=== PATIENT | male | born 1945 | race African-American/Black ===

== ENCOUNTER 2022-10-02 11:12 | Outpatient (REF) | payer OTHER, SELFPAY ==
[2022-10-02 11:24] LABS: MANUAL DIFF FLAG NO
[2022-10-02 11:36] LABS: Basophils Percent Auto 0.5 % (0-2); Eosinophils Absolute Auto 0.3 X10*3/uL (0.0-0.4); Eosinophils Percent Auto 2.9 % (0-4); Hematocrit 43.2 % (42.0-52.0); Hemoglobin 14.4 g/dl (14.0-18.0); Imm Gran Abs Auto 0.05 X10*3/uL (0.00-0.03); Imm Gran Pct Auto 0.6 % (0.0-0.4); Lymphocytes Absolute Auto 3.3 X10*3/uL (1.2-4.9); Lymphocytes Percent Auto 38.6 % (20-40); Mean Corpuscular HGB Conc 33.3 g/dl (31.0-36.0); Mean Corpuscular Hemoglobin 30.9 pg (27.0-33.0); Mean Corpuscular Volume 92.7 fL (80.0-98.0); Mean Platelet Volume 9.2 fL (9.4-12.4); Monocytes Absolute Auto 0.9 X10*3/uL (0.1-1.2); Monocytes Percent Auto 10.4 % (2-11); Platelet Count 293 X10*3/uL (160-400); Red Blood Count 4.66 X10*6/uL (4.60-5.80); Red Cell Distribution Width 14.5 % (11.0-16.0); White Blood Count 8.6 X10*3/uL (4.8-10.8)
[2022-10-02 12:15] LABS: Alanine Aminotransferase 35 U/L (0-40); Albumin Level 4.5 g/dL (3.5-5.0); Alkaline Phosphatase 69 U/L (39-117); Anion Gap 16 (12-20); Aspartate Amino Transferase 30 U/L (5-37); Bilirubin Total 0.7 mg/dL (0.0-1.0); Blood Urea Nitrogen 20 mg/dL (9-16); Calcium 9.6 mg/dL (8.4-10.2); Carbon Dioxide 26 mmol/L (22-29); Chloride 104 mmol/L (96-108); Cholesterol 165 mg/dL; Estimated Glomerular Filt Rate 45; Glucose Random 106 mg/dL (60-115); Potassium 3.9 mmol/L (3.3-5.1); Sodium 142 mmol/L (135-145); Total Protein 7.9 g/dL (6.5-8.0); Uric Acid 6.9 mg/dL (3.4-7.0)
[2022-10-02 12:38] LABS: TSH reflex Free T4 1.02 uIU/mL (0.32-4.0)
== END 2022-10-02 11:13 | disposition home or self-care (01) ==
LOC: HO.LAB 11:12
PROVIDERS: PCP Internal Medicine; Visit Provider Internal Medicine
DX: K21.9 Gastro-esophageal reflux disease without esophagitis (principal); E78.00 Pure hypercholesterolemia, unspecified; M10.9 Gout, unspecified; E55.9 Vitamin D deficiency, unspecified; I10 Essential (primary) hypertension
CPT/HCPCS: 36415; 80053; 82306; 82465; 84443; 84550; 85025

== ENCOUNTER 2022-10-06 10:00 | Outpatient (RCR) | payer OTHER, SELFPAY ==
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
--- NOTE | 2022-10-06 13:16 | MHC.PT.DC ---
[facility] [place] Office [place] Office [place] Office [address] Flor Garrett [address] [phone] F: [phone] F: [phone] F: [phone] F: [phone] Physical Therapy Discharge Report Diagnosis: STRAIN OF MUSCLE FASCIA AND TENDON AT NECK LEVEL Date of Surgery: NA Date of Evaluation: 09/05/22 Date of Discharge: 10/06/22 Treatments to Date: 7 Cancellations to Date: No Shows to Date: Discharge Status: Improved Function Independent with HEP Recommend MD Follow-up Discharge Summary: PER ASSESSMENT LAST SESSION BY JULIO C BEASLEY PT, DPT Fatigues quickly with ER therex but independent with performance for HEP. Has met goals of PT and is agreeable to DC on this date. Electronically signed by: GERMAINE LUNA PT Please sign and return to therapist. Thank you for your referral.
== END 2022-10-06 13:16 | disposition home or self-care (01) ==
LOC: HO.PT 10:00
PROVIDERS: PCP Internal Medicine; Visit Provider Internal Medicine
DX: S16.1XXS Strain of muscle, fascia and tendon at neck level, sequela (principal); V89.2XXS Person injured in unspecified motor-vehicle accident, traffic, sequela
CPT/HCPCS: 97110; 97140; 97161; 97535

== ENCOUNTER 2023-02-01 05:58 | Outpatient (REF) | payer OTHER, SELFPAY ==
--- NOTE | ~2023-02-01 | XR_ITS ---
EXAMINATION: XR KNEE, LEFT CLINICAL INFORMATION: Pain. COMPARISON: None TECHNIQUE: AP, lateral, tunnel, and sunrise views of the left knee. FINDINGS: Bony alignment and mineralization are normal. There is moderately severe asymmetric narrowing of the medial joint space compartment, with peripheral osteophyte formation. The lateral and patellofemoral joint space compartments are well-maintained. Small patellar enthesophytes are noted. No fracture, dislocation or joint effusion is seen. There is no foreign body. There are atherosclerotic calcifications. XR/XR knee LT 4V IMPRESSION: 1. No fracture, dislocation or left knee joint effusion is seen. 2. There is moderately severe osteoarthritic change of the medial joint space compartment of the left knee.
--- NOTE | ~2023-02-01 | XR_ITS ---
EXAMINATION: XR HIP, LEFT CLINICAL INFORMATION: Pain. COMPARISON: None TECHNIQUE: AP and frog-leg lateral views of the left hip. FINDINGS: Bony alignment and mineralization are normal. The left acetabular joint space is well-maintained. A tiny subchondral cyst is noted of the lateral margin of the left acetabular roof. No fracture or dislocation is seen. The left femoral head appears smooth. There is no foreign body. XR/XR hip LT min 2V IMPRESSION: Very mild osteoarthritic change is seen of the left hip. No fracture or dislocation is seen.
== END 2023-02-01 05:59 | disposition home or self-care (01) ==
LOC: HO.XRAY 05:58
PROVIDERS: PCP Internal Medicine; Visit Provider Internal Medicine
DX: M25.562 Pain in left knee (principal); M25.552 Pain in left hip
CPT/HCPCS: 73502; 73564

== ENCOUNTER 2023-07-16 13:09 | Outpatient (AMB) | payer MEDICARE, SELFPAY ==
[2023-07-16 13:13] VITALS: BP 118/86; PULSE 61; O2SAT 98; BMI 27.4
--- NOTE | 2023-07-16 13:13 | MHC.PC.OV ---
Vital Signs 07/16/23 13:13 Height 5 ft 6 in Weight 169 lb 8 oz BMI 27.4 BP 118/86 Blood Pressure Location Lt brachial Position Sitting Pulse 61 Pulse Source Pulse Oximeter Pulse Oximetry (%) 98 Oxygen Delivery Method Room Air Intake Visit Reasons: Follow up, RS no show appt from [facility] Program Manager Required: No Accompanied by: Self / Same As Patient Allergies No Known Drug Allergies Allergy (Unknown, Verified 07/16/23 13:56) Unknown Medication List - Last Reconciled 07/16/23 by Chuck Riojas MD allopurinol 200 mg (2 x 100 mg) PO DAILY 90 days aspirin 81 mg PO DAILY atorvastatin 40 mg PO DAILY 90 days cholecalciferol (vitamin D3) 50 mcg PO DAILY 90 days hydrochlorothiazide 25 mg PO DAILY losartan 25 mg PO DAILY omeprazole 20 mg PO QAM 90 days tizanidine 4 mg PO Q8H PRN 10 days Tobacco use date assessed: 07/16/23 Fall risk assessment: No Falls in past year Last assessed Fall Risk: 07/16/23 Dental Screening Dental Screen Date: 07/16/23 Did you have a dental visit in the last 12 months?: No Did you have a dental problem in the last 6 months where you did not have access to dental care?: No Was dental information given to patient?: No HPI Follow up, RS no show appt from [facility] HPI Details Patient comes in today for his follow up visit - has not been back since December 2022 States that he continues to experience increased pain in both knees as well as on and off pain in his left hip Notes that his left hip hurts a lot and he sometimes would feel a hard ball in his left hip area when the pain flares up Would like to know how his x-rays done a few months ago came out Adds that he needs all of his Rx refilled and sent over to his mail order pharmacy - [facility] Was told that they have been faxing a form over for us to full out over the past couple of weeks but we have not yet responded to them States that he needs this processed JACOB as he will be running out of all of his Rx soon States that he feels okay otherwise He denies any headaches or dizziness Denies any chest pains, no SOB No nausea/vomiting, no abdominal pain No change in bowel habits noted Has not had any follow up labs done recently [facility] Medical History Benign essential hypertension Chronic kidney disease (CKD), stage III (moderate) GERD (gastroesophageal reflux disease) Gout Overweight (BMI 25.0-29.9) Pure hypercholesterolemia Vitamin D deficiency Surgical History History of cataract surgery Family History Mother No problems noted. Father No problems noted. Social History Housing: Apartment Alcohol intake: current Alcohol intake frequency: holidays/special occasions only Patient Tobacco Use Status: Former Tobacco user e-Cigarette/Vaping Use: Never Used Second Hand Smoke Exposure: Yes Current occupational status: retired Cognitive needs: No Hearing needs: No Vision needs: No Questionnaire PHQ-9 Over the last 2 weeks, how often have you been bothered by any of the following problems? 1. Little interest or pleasure in doing things: not at all 2. Feeling down, depressed, or hopeless: not at all 3. Trouble falling or staying asleep, or sleeping too much: not at all 4. Feeling tired or having little energy: not at all 5. Poor appetite or overeating: not at all 6. Feeling bad about yourself - or that you are a failure or have let yourself or your family down: not at all 7. Trouble concentrating on things, such as reading the newspaper or watching television: not at all 8. Moving or speaking so slowly that other people could have noticed. Or the opposite - being so fidgety or restless that you have been moving around a lot more than usual: not at all 9. Thoughts that you would be better off or of hurting yourself in some way: not at all Total score: 0 Depression Screening Interpretation: Negative [id number] - PHQ-9 Billing: Yes Source: Developed by Drs. Jeff Mena, Roselia Miller, Lalo Sexton and colleagues, with an educational alia from [employer]. Thrive Questionnaire Date Thrive assessed: 07/16/23 I am a: Patient What is your living situation today?: I have a steady place to live Within the past 12 months, did the food you bought not last and you didn't have the money to get more?: Never true Within the past 12 months, did you worry whether your food would run out before you got money to buy more?: Never true Do you have trouble paying for medicines?: No Do you have trouble getting transportation to medical appointments?: No Do you have trouble paying your heating and electricity bill?: No Do you have trouble taking care of your child, family member or friend?: No Do you have trouble with day-to-day activities such as bathing, preparing meals, shopping, managing finances, etc.?: No Are you currently unemployed and looking for a job?: No Are you interested in more education?: No Please select the resources that you would like help with: None Currently or been in a relationship where the following occur: no concerns reported AUDIT C Alcohol Use Questionnaire (AUDIT-C) 1. How often do you have a drink containing alcohol?: Monthly or less 2. How many drinks containing alcohol do you have on a typical day when you are drinking?: 1 or 2 3. How often do you have six or more drinks on one occasion?: Never Total Score: 1 Score Reviewed/Action Taken: Yes SID-7 AMB Questionnaire SID-7 Date SID - 7 assessed: 07/16/23 Feeling nervous, anxious, or on edge: 0 = Not at all Not being able to stop or control worryin = Not at all Worrying too much about different things: 0 = Not at all Trouble relaxin = Not at all Being so restless that it is hard to sit still: 0 = Not at all Becoming easily annoyed or irritable: 0 = Not at all Feeling afraid as if something awful might happen: 0 = Not at all Total SID-7 score (0-4 normal; 5-9 mild; 10-14 moderate; 15-21 severe): 0 Source: Developed by Drs. Jeff Mena, Roselia Miller, Lalo Sexton and colleagues, with an educational alia from [employer]. SID-7 Assessment Billing SID-7 Assessment Tool: SID-7 Assessment 75402 Review of Systems Const Denies fatigue, Denies fever(s) and Denies headache(s) ENT Denies dysphagia, Denies dizziness, Denies otalgia, Denies headache(s), Denies odynophagia and Denies sore throat Card Denies chest pain, Denies palpitations and Denies dyspnea Resp Denies cough and Denies dyspnea GI Denies abdominal pain, Denies constipation, Denies dysphagia, Denies heartburn, Denies diarrhea, Denies nausea, Denies odynophagia and Denies vomiting Denies dysuria and Denies nocturia Musc Reports arthralgias (left hip and both knees - see HPI) and Denies joint swelling Skin/Breast Denies rash Neuro Denies dizziness and Denies headache(s) Endo Denies fatigue and Denies palpitations Physical exam (Primary Care) Vital Signs: Last Vital Signs Pulse 61 07/16/23 13:13 BP 118/86 07/16/23 13:13 Pulse Ox 98 07/16/23 13:13 Oxygen Delivery Method Room Air 07/16/23 13:13 BMI result Body Mass Index 27.4 Tobacco/Smoking Status: Tobacco use Status Tobacco use date assessed 07/16/23 07/16/23 13:19 Patient Tobacco Use Status Former Tobacco user 07/16/23 13:19 e-Cigarette/Vaping Use Never Used 07/16/23 13:19 PHQ-9: PHQ-9 Score PHQ-9: Total score 0 07/16/23 17:10 Depression Screening Interpretation: Negative Thrive Assessment: Date of Thrive Assessment Date Thrive assessed 07/16/23 07/16/23 13:19 Currently or been in a relationship where the following occur: no concerns reported Const General: no acute distress and alert HENMT Ears: TM's normal bilaterally and EAC's normal Throat: Yes posterior oropharynx normal and Yes tonsils normal (no TP congestion) Neck Neck: Yes no lymphadenopathy and Yes supple Resp Auscultation: clear to auscultation bilaterally, no rales and no wheezes Cardio Rate: regular rate Rhythm: regular rhythm Heart sounds: no murmurs GI Palpation (GI): Soft to palpation and nontender Auscultation: normal bowel sounds Skin Rashes: no rashes Extrem General: Yes no clubbing, cyanosis or edema Right lower extremity: knee Details: tenderness; no swelling Left lower extremity: hip/thigh Details: tenderness Location: of the hip Location: posterolaterally; no swelling and knee Details: tenderness; no swelling Assessment and Plan Assessment & Plan (1) Benign essential hypertension: Code(s): I10 - Essential (primary) hypertension Plan: Reinforced low sodium diet - goal is systolic BP of at least 130 to 140 mm or less, especially now in light of his stage 3 CKD Continue HCTZ 25 mg Q AM and Losartan 25 mg QD Recalls feeling very dizzy all the time while on Amlodipine in the past - symptoms have improved with discontinuation of the medication (2) Chronic kidney disease (CKD), stage III (moderate): Code(s): N18.30 - Chronic kidney disease, stage 3 unspecified Qualifiers: Chronic kidney disease stage 3 subtype: stage 3a (GFR 45-59) Qualified Code(s): N18.31 - Chronic kidney disease, stage 3a Plan: Cautioned again that he currently is in CKD stage 3 based on his lab results and that he should make every effort to keep his BP controlled as best as possible to slow down the decline in his renal function Will continue to monitor his renal function closely/regularly - will have him go and get his previously ordered follow up labs done JACOB (3) Pure hypercholesterolemia: Code(s): E78.00 - Pure hypercholesterolemia, unspecified Plan: Reinforced low cholesterol diet Continue Atorvastatin 40 mg QD Will recheck labs and FASTING lipids JACOB for follow up (4) Vitamin D deficiency: Code(s): E55.9 - Vitamin D deficiency, unspecified Plan: Continue Vitamin D3 2000 units QD (5) Gout: Code(s): M10.9 - Gout, unspecified Qualifiers: Chronicity: unspecified Gout etiology: unspecified cause Gout site: unspecified site Qualified Code(s): M10.9 - Gout, unspecified Plan: Reinforced low purine diet Serum uric acid level was normal when last checked in September 2022; will recheck JACOB Continue Allopurinol 100 mg 2 tablets QD (6) Bilateral primary osteoarthritis of knee: Code(s): M17.0 - Bilateral primary osteoarthritis of knee Plan: X-rays of the left knee done back in January 2023 revealed (+) moderately severe OA changes of the medial joint space compartment of the left knee Advised that this is also most likely the reason for his increasing right knee pain lately Will refer him to orthopedics for further evaluation and management (7) Primary osteoarthritis of left hip: Code(s): M16.12 - Unilateral primary osteoarthritis, left hip Plan: Left hip x-rays done in January 2023 revealed (+) very mild OA changes in the left hip As his left hip seems to be bothering him a lot, will also refer him to orthopedics for further evaluation and management (8) GERD (gastroesophageal reflux disease): Code(s): K21.9 - Gastro-esophageal reflux disease without esophagitis Qualifiers: Esophagitis presence: without esophagitis Qualified Code(s): K21.9 - Gastro-esophageal reflux disease without esophagitis Plan: Dietary restrictions reinforced Continue Omeprazole 20 mg QD (9) Overweight (BMI 25.0-29.9): Code(s): E66.3 - Overweight Plan: Reinforced diet/exercise as tolerated/lose weight Plan Follow up in 4 months Orders: Orders Comprehensive Reform. Panel Fast Today E78.00 - Pure hypercholesterolemia, unspecified Lipid Panel Today E78.00 - Pure hypercholesterolemia, unspecified TSH reflex Free T4 Today E78.00 - Pure hypercholesterolemia, unspecified Vitamin D 25-OH Total Today E55.9 - Vitamin D deficiency, unspecified Complete Blood Count Auto Diff Today I10 - Essential (primary) hypertension UA CC w/rflx Micro + Cult Today R30.0 - Dysuria Uric Acid Today M10.9 - Gout, unspecified Referrals Orthopedics Referral M16.12 - Unilateral primary osteoarthritis, left hip, M17.0 - Bilateral primary osteoarthritis of knee Medications: Refilled losartan 25 mg PO DAILY 90 tabs 1RF allopurinol 200 mg (2 x 100 mg) PO DAILY 90 days 180 tabs 1RF aspirin 81 mg PO DAILY 90 tabs 1RF atorvastatin 40 mg PO DAILY 90 days 90 tabs 1RF cholecalciferol (vitamin D3) 50 mcg PO DAILY 90 days 90 tabs 3RF R79.89 - Other specified abnormal findings of blood chemistry hydrochlorothiazide 25 mg PO DAILY 90 tabs 0RF omeprazole 20 mg PO QAM 90 days 90 caps 1RF tizanidine 4 mg PO Q8H PRN 30 tabs 0RF muscle spasms 10 days allopurinol 200 mg (2 x 100 mg) PO DAILY 180 tabs 1RF 90 days atorvastatin 40 mg PO DAILY 90 tabs 1RF 90 days cholecalciferol (vitamin D3) 50 mcg PO DAILY 90 tabs 3RF 90 days R79.89 - Other specified abnormal findings of blood chemistry hydrochlorothiazide 25 mg PO DAILY 90 tabs 0RF omeprazole 20 mg PO QAM 90 caps 1RF 90 days Coding Level of Care Code Est Pt Level 4 (04010) Diagnoses Benign essential hypertension I10 Chronic kidney disease (CKD), stage III (moderate) N18.31 Chronic kidney disease stage 3 subtype: stage 3a (GFR 45-59) Pure hypercholesterolemia E78.00 Vitamin D deficiency E55.9 Gout M10.9 Chronicity: unspecified Gout etiology: unspecified cause Gout site: unspecified site Bilateral primary osteoarthritis of knee M17.0 Primary osteoarthritis of left hip M16.12 GERD (gastroesophageal reflux disease) K21.9 Esophagitis presence: without esophagitis Overweight (BMI 25.0-29.9) E66.3 Additional Codes SID-7 Assessment Billing - SID-7 Assessment Tool: SID-7 Assessment 94457 ([id number])
== END 2023-07-16 13:58 | disposition home or self-care (01) ==
PROVIDERS: PCP Internal Medicine; Visit Provider Internal Medicine
DX: I12.9 Hypertensive chronic kidney disease with stage 1 through stage 4 chronic kidney disease, or unspecified chronic kidney disease (principal); N18.31 Chronic kidney disease, stage 3a; E55.9 Vitamin D deficiency, unspecified; K21.9 Gastro-esophageal reflux disease without esophagitis; E78.00 Pure hypercholesterolemia, unspecified; M10.9 Gout, unspecified; M17.0 Bilateral primary osteoarthritis of knee; M16.12 Unilateral primary osteoarthritis, left hip; E66.3 Overweight
CPT/HCPCS: 99214

== ENCOUNTER 2023-07-27 09:49 | Outpatient (REF) | payer MEDICARE, SELFPAY ==
--- NOTE | ~2023-07-27 | XR_ITS ---
EXAMINATION: XR PELVIS CLINICAL INFORMATION: Hip pain COMPARISON: Left hip 02/01/2023 TECHNIQUE: AP view of the pelvis. FINDINGS: There is normal symmetry of bilateral hip joints. No bony erosive changes no fracture or lytic process. The SI joints are symmetrical. The mild degenerative disc changes L4-L5 and L5-S1 disc levels are noted. Soft tissues are normal. XR/XR pelvis 1-2V IMPRESSION: Mild degenerative disc changes L4-L5 and L5-S1 disc level. No visible acute fracture or dislocation seen.
== END 2023-07-27 09:50 | disposition home or self-care (01) ==
LOC: HO.HOSX 09:49
PROVIDERS: Visit Provider Orthopaedic Surgery
DX: M47.816 Spondylosis without myelopathy or radiculopathy, lumbar region (principal)
CPT/HCPCS: 72170

== ENCOUNTER 2023-07-27 10:04 | Outpatient (AMB) | payer MEDICARE, SELFPAY ==
--- NOTE | 2023-07-27 10:04 | A.OFFVIS_ITS ---
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 Patient reports that has been ongoing for a few years now. His pain is located on the lasteral aspect of the hip. His pain is intermittant and tends to flair with cold weather. 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 He complains of pain primarily on the lateral aspect of his hip, intermittently. He says his pain seems to be present every other day with no exacerbating factors. He says he sometimes feels a lump where he feels his pain and if he massages it for some time his pain can resolve. He says his pain has been present for ~2 years now and he denies any prior treatment. He says he can walk well when his hip is not causing him pain. He denies any numbness, tingling, or burning pain. He has lumbar spine OA [facility] Medical History Benign essential hypertension Chronic kidney disease (CKD), stage III (moderate) GERD (gastroesophageal reflux disease) Gout Overweight (BMI 25.0-29.9) Pure hypercholesterolemia Vitamin D deficiency Surgical History History of cataract surgery Family History Mother No problems noted. Father No problems noted. Social History Housing: Apartment Alcohol intake: current Alcohol intake frequency: holidays/special occasions only Patient Tobacco Use Status: Former Tobacco user e-Cigarette/Vaping Use: Never Used Second Hand Smoke Exposure: Yes Current occupational status: retired Cognitive needs: No Hearing needs: No Vision needs: No Review of Systems Const All systems reviewed & are unremarkable except as noted in HPI and below Physical Exam Const General: no acute distress, alert and awake Orientation/consciousness: patient oriented x3 HEENT Head: Yes normocephalic and Yes atraumatic Eyes EOM: EOMs intact bilaterally Resp Effort & Inspection: normal respiratory effort and able to speak in complete sentences Cardio Jugular venous distension: no JVD Skin General skin exam: turgor normal Rashes: no rashes Neuro General: patient oriented x3 Extrem Other: Left Hip: Full ROM No pain TTP over SI and lumbosacral region Psych Appearance: grossly normal Affect: normal affect Attitude: cooperative Results Reviewed Results Reviewed: I personally reviewed relevant radiographs. Mild osteoarthritic change is seen of the left hip There is moderately severe osteoarthritic change of the medial joint space compartment of the left knee. Assessment & Plan Assessment & Plan (1) Osteoarthritis of lumbar spine: Code(s): M47.816 - Spondylosis without myelopathy or radiculopathy, lumbar region Plan: This is a 77 year old man with lumbar spine OA. He has intermittent pain with daily activity, localized primarily to the lateral aspect of his hip. He denies any prior treatment. I discussed his diagnosis and treatment options. I referred him to Dr. Bertrand in Pain Management to discuss treatment options. He can follow up prn. Plan Scribed for Thien Noble MD by Lucius Reynoso, medical record specialist, on 07/27/23 at 10:45 AM, EST. Orders: Orders XR pelvis 1-2V 07/27/23 M25.559 - Pain in unspecified hip Referrals Pain Management Referral M47.816 - Spondylosis without myelopathy or radiculopathy, lumbar region Coding Level of Care Code New Pt Level 4 (97842) Diagnoses Osteoarthritis of lumbar spine M47.816
== END 2023-07-27 10:43 | disposition home or self-care (01) ==
PROVIDERS: PCP Internal Medicine; Visit Provider Orthopaedic Surgery
DX: M47.816 Spondylosis without myelopathy or radiculopathy, lumbar region (principal)
CPT/HCPCS: 99204

== ENCOUNTER 2023-09-10 14:26 | Outpatient (AMB) | payer MEDICARE, SELFPAY ==
--- NOTE | 2023-09-10 14:31 | A.OFFVIS_ITS ---
Intake Vital Signs 09/10/23 14:33 Height 5 ft 6 in Weight 165 lb BMI 26.6 BP 157/71 H Blood Pressure Location Lt brachial Position Sitting Respiration 14 Pulse 46 L Pulse Source Pulse Oximeter Pulse Oximetry (%) 97 Oxygen Delivery Method Room Air Intake Visit Reasons: Spondylosis w/o myelopathy or radiculopathy Allergies No Known Drug Allergies Allergy (Unknown, Verified 09/10/23 14:34) Unknown Medication List - Last Reconciled 09/10/23 by Lata Antoine LPN allopurinol 200 mg (2 x 100 mg) PO DAILY 90 days aspirin 81 mg PO DAILY atorvastatin 40 mg PO DAILY 90 days cholecalciferol (vitamin D3) 50 mcg PO DAILY 90 days hydrochlorothiazide 25 mg PO DAILY losartan 25 mg PO DAILY omeprazole 20 mg PO QAM tizanidine 4 mg PO Q8H PRN 10 days HPI Spondylosis w/o myelopathy or radiculopathy HPI0 Details 77-year-old male who presents today to t he office for an evaluation of spondylosis without myelopathy or radiculopathy. He has a history of lumbar spine OA. Pain is rated as 6 to 8/10 in intensity. The patient reports pain in the lateral aspect of his hip that started about two years ago. He describes his pain as intermittent in nature. He states that his pain seems to be present every other day with no exacerbating factors. He says he can walk well when his hip is not causing him pain. He denies any numbness, tingling, or burning pain. He denies any prior treatment. [facility] Medical History Benign essential hypertension Chronic kidney disease (CKD), stage III (moderate) GERD (gastroesophageal reflux disease) Gout Overweight (BMI 25.0-29.9) Pure hypercholesterolemia Vitamin D deficiency Surgical History History of cataract surgery Family History Mother No problems noted. Father No problems noted. Social History Housing: Apartment Alcohol intake: current Alcohol intake frequency: holidays/special occasions only Patient Tobacco Use Status: Former Tobacco user e-Cigarette/Vaping Use: Never Used Second Hand Smoke Exposure: Yes Current occupational status: retired Cognitive needs: No Hearing needs: No Vision needs: No Review of Systems Const All systems reviewed & are unremarkable except as noted in HPI and below Physical Exam Vital Signs: Last Vital Signs Pulse 46 L 09/10/23 14:33 Resp 14 09/10/23 14:33 BP 157/71 H 09/10/23 14:33 Pulse Ox 97 09/10/23 14:33 Oxygen Delivery Method Room Air 09/10/23 14:33 BMI result Body Mass Index 26.6 General: Appears afebrile. Alert and oriented. Mood and affect appropriate. Follows and participates in conversation appropriately. Respiratory effort is unlabored. Able to transition from sit to stand unassisted. Ambulates with bilaterally normal heel strike and toe off. Tenderness on palpation overlying the right sacroiliac joint region. There is a reproduction of pain on lumbar extension and facet loading. There is also tenderness overlying the right greater trochanteric area. Results Reviewed Results Reviewed: 07/27/23: XR PELVIS FINDINGS: There is normal symmetry of bilateral hip joints. No bony erosive changes no fracture or lytic process. The SI joints are symmetrical. The mild degenerative disc changes L4-L5 and L5-S1 disc levels are noted. Soft tissues are normal. IMPRESSION: Mild degenerative disc changes L4-L5 and L5-S1 disc level. No visible acute fracture or dislocation seen. Assessment & Plan Assessment & Plan (1) Osteoarthritis of lumbar spine: Code(s): M47.816 - Spondylosis without myelopathy or radiculopathy, lumbar region Qualifiers: Spinal osteoarthritis complication: without myelopathy or radiculopathy Qualified Code(s): M47.816 - Spondylosis without myelopathy or radiculopathy, lumbar region (2) Sacroiliac joint dysfunction: Code(s): M53.3 - Sacrococcygeal disorders, not elsewhere classified Plan Discussed continuing physical therapy vs. diagnostic SIJ/facet joint injections as a possible treatment option. Will schedule him for a diagnostic L3-L4-L5 medial branch block, bilaterally followed by diagnostic sacroiliac joint injections bilaterally two weeks apart. Based on the results of the diagnostic injections, we will decide on further interventions to target it towards either the lumbar facets or the sacroiliac joint. Discussed the risks and benefits of the procedure with the patient in detail. All questions were answered. The patient is on board with the plan. Informed the patient that insurance approval is required. We will file a PA for approval and keep him updated. Justification for interventional therapy: ? Patient with average pain > 6/10 ? Patient has exhausted conservative therapy Scribed for Dr. Bertrand by Edgard Mcdonald, medical program specialist, on 09/10/2023. I, Dr. Bertrand, have personally reviewed and agree with the information entered by the scribe. Coding Level of Care Code New Pt Level 4 (41720) Diagnoses Spondylosis of lumbar region without myelopathy or radiculopathy M47.816 Spinal osteoarthritis complication: without myelopathy or radiculopathy Sacroiliac joint dysfunction M53.3
[2023-09-10 14:33] VITALS: BP 157/71; PULSE 46; RESP 14; O2SAT 97; BMI 26.6
== END 2023-09-10 14:53 | disposition home or self-care (01) ==
PROVIDERS: PCP Internal Medicine; Visit Provider Internal Medicine
DX: M47.816 Spondylosis without myelopathy or radiculopathy, lumbar region (principal); M53.3 Sacrococcygeal disorders, not elsewhere classified
CPT/HCPCS: 99204

== ENCOUNTER → 2023-09-10 14:26 | Outpatient (BNVA) | payer MEDICARE, SELFPAY | PROVIDERS: PCP Internal Medicine; Visit Provider Internal Medicine ==

== ENCOUNTER 2023-10-31 06:07 | Outpatient (REF) | payer MEDICARE, SELFPAY | END 2023-10-31 06:08 | disposition home or self-care (01) | LOC: CF 06:07 | PROVIDERS: Visit Provider Internal Medicine | DX: Z13.89 Encounter for screening for other disorder (principal) ==

== ENCOUNTER 2023-11-21 05:33 | Outpatient (REF) | payer MEDICARE, SELFPAY ==
--- NOTE | ~2023-11-21 | FL_ITS ---
EXAMINATION: XR FLUOROSCOPY WITH IMAGES CLINICAL INFORMATION: Sacrococcygeal disorders, not elsewhere classified. COMPARISON: None available. TECHNIQUE: Fluoroscopy Supervised By: Dr. Thor Bertrand. Fluoroscopy Time: 0.2 minutes. Cumulative Dose: 4.55 mGy. DAP: 0.306 Gycm2. Images: 4. FINDINGS: Images demonstrate needle placement over the bilateral sacroiliac joints FL/FL guidance in treatment room IMPRESSION: Fluoroscopy guidance for bilateral sacroiliac joint injection.
== END 2023-11-21 05:34 | disposition home or self-care (01) ==
LOC: CF 05:33
PROVIDERS: Visit Provider Internal Medicine
DX: M53.3 Sacrococcygeal disorders, not elsewhere classified (principal)
CPT/HCPCS: 27096; J2795; Q9967

== ENCOUNTER 2023-11-21 07:35 | Outpatient (AMB) | payer MEDICARE, SELFPAY ==
[2023-11-21 07:41] VITALS: BP 150/66; PULSE 51; RESP 12; O2SAT 100
--- NOTE | 2023-11-21 07:41 | MHC.OFFVIS ---
Intake Vital Signs 11/21/23 07:41 11/21/23 08:14 BP 150/66 H 150/70 H Blood Pressure Location Lt brachial Lt brachial Position Sitting Sitting Respiration 12 12 Pulse 51 63 Pulse Source Pulse Oximeter Pulse Oximeter Pulse Oximetry (%) 100 100 Oxygen Delivery Method Room Air Room Air Intake Visit Reasons: Bijan Dx SIJ inj Allergies No Known Drug Allergies Allergy (Unknown, Verified 11/21/23 07:42) Unknown HPI Bijan Dx SIJ inj HPI Details Patient presents for scheduled procedure. Denies any recent cough, cold, infection, fever or other significant changes in medical history since last office visit. [facility] Medical History Benign essential hypertension Chronic kidney disease (CKD), stage III (moderate) GERD (gastroesophageal reflux disease) Gout Overweight (BMI 25.0-29.9) Pure hypercholesterolemia Vitamin D deficiency Surgical History History of cataract surgery Family History Mother No problems noted. Father No problems noted. Social History Housing: Apartment Alcohol intake: current Alcohol intake frequency: holidays/special occasions only Patient Tobacco Use Status: Former Tobacco user e-Cigarette/Vaping Use: Never Used Second Hand Smoke Exposure: Yes Current occupational status: retired Cognitive needs: No Hearing needs: No Vision needs: No Physical Exam Vital Signs: Last Vital Signs Pulse 63 11/21/23 08:14 Resp 12 11/21/23 08:14 BP 150/70 H 11/21/23 08:14 Pulse Ox 100 11/21/23 08:14 Oxygen Delivery Method Room Air 11/21/23 08:14 Office Procedures Joint Injection/Drain Joint Injection/Drain Details: Diagnostic Sacroiliac Joint Injection, Bilateral The procedure, its benefits, and its risks were explained and written informed consent was obtained from the patient. Immediately prior to starting the procedure, a time-out safety check was conducted. The patient's identification, procedure name, procedure site, and procedure laterality were confirmed with the patient. ? Patient was placed prone on the fluoroscopy table and the lumbosacral area was prepped using ChloraPrep and draped with sterile drapein standard fashion. The C-arm was rotated in a contralateral oblique fashion until the medial border of the iliac crest no longer foreshadowed the posterior sacroiliac joint line. The skin and subcutaneous tissue was anesthetized using 1 mL of 0.75% plain lidocaine with 1.5-inch 25-gauge needle in the middle region of the joint line.? A 3.5-inch 22-gauge spinal needle with small bend on the tip was slowly advanced towards the joint line, coaxial to the x-ray beam. Once bony content was obtained, the needle was easily slid into the intra-articular space.? Intra-articular needle position was confirmed using lateral fluoroscopy.? A total volume of 2 mL of solution containing 0.5% of ropivacaine was injected intra-articularly. The stylet was reinserted and needle was removed. The same procedure was repeated on the other side. The patient tolerated the procedure well. Patient denied any lower extremity weakness or numbness. Patient was observed for 30 min and was discharged after fulfilling the standard discharge criteria. Coding 01744 - Sacroiliac (bilateral) Procedure code (CPT) selection complete Assessment & Plan Assessment & Plan (1) Sacroiliac joint dysfunction: Code(s): M53.3 - Sacrococcygeal disorders, not elsewhere classified Plan Patient is status post bilateral diagnostic SIJ injections. Patient tolerated procedure well and was discharged home in stable condition with discharge instructions. All questions were answered. We will follow-up via telephone or in clinic to assess response to therapy. A follow-up appointment was made during today's visit. Orders: Orders FL guidance in treatment room Today M53.3 - Sacrococcygeal disorders, not elsewhere classified Coding Level of Care Code Procedure Only Diagnoses Sacroiliac joint dysfunction M53.3 CPT Codes Coding - Joint 9: 42271 - Sacroiliac ([id number])
[2023-11-21 08:14] VITALS: BP 150/70; PULSE 63; RESP 12; O2SAT 100
== END 2023-11-21 08:13 | disposition home or self-care (01) ==
LOC: HO.PMCPRC 07:35
PROVIDERS: PCP Internal Medicine; Visit Provider Internal Medicine
DX: M53.3 Sacrococcygeal disorders, not elsewhere classified (principal)
CPT/HCPCS: 27096

== ENCOUNTER 2023-11-30 08:47 | Outpatient (AMB) | payer OTHER, SELFPAY ==
--- NOTE | 2023-11-30 08:50 | MHC.OFFVIS ---
Intake Vital Signs 11/30/23 08:51 Height 5 ft 6 in Weight 166 lb BMI 26.8 BP 191/86 H Blood Pressure Location Lt brachial Position Sitting Respiration 12 Pulse 49 L Pulse Source Pulse Oximeter Pulse Oximetry (%) 99 Oxygen Delivery Method Room Air Intake Visit Reasons: s/p estefany Dx SIJ inj/confirmed Allergies No Known Drug Allergies Allergy (Unknown, Verified 11/30/23 08:52) Unknown Medication List - Last Reconciled 11/30/23 by Lata Antoine LPN allopurinol 200 mg (2 x 100 mg) PO DAILY 90 days aspirin 81 mg PO DAILY atorvastatin 40 mg PO DAILY 90 days cholecalciferol (vitamin D3) 50 mcg PO DAILY 90 days hydrochlorothiazide 25 mg PO DAILY losartan 25 mg PO DAILY omeprazole 20 mg PO QAM tadalafil 20 mg (4 x 5 mg) PO DAILY PRN 10 days tizanidine 4 mg PO Q8H PRN 10 days HPI s/p estefany Dx SIJ inj/confirmed HPI Details 78-year-old male who presents today to the office for a status post bilateral diagnostic SIJ injection. The patient reports 70% ongoing relief following the procedure. He reports bilateral knee pain, which is more bothersome (R>L). He had a cortisone injection several years ago and did not provide much relief. He also completed physical therapy about a year ago. He has been taking Tylenol and ibuprofen as needed. He had an x-ray last year that showed moderate osteoarthritis in the left knee. He has not previously had hyaluronic acid injections. He is interested in trialing hyaluronic acid injection. Past procedure: 11/21/23: Diagnostic Sacroiliac Joint Injection, Bilateral: 70 %relief. [facility] Medical History Benign essential hypertension Chronic kidney disease (CKD), stage III (moderate) GERD (gastroesophageal reflux disease) Gout Overweight (BMI 25.0-29.9) Pure hypercholesterolemia Vitamin D deficiency Surgical History History of cataract surgery Family History Mother No problems noted. Father No problems noted. Social History Housing: Apartment Alcohol intake: current Alcohol intake frequency: holidays/special occasions only Patient Tobacco Use Status: Former Tobacco user e-Cigarette/Vaping Use: Never Used Second Hand Smoke Exposure: Yes Current occupational status: retired Cognitive needs: No Hearing needs: No Vision needs: No Review of Systems Const All systems reviewed & are unremarkable except as noted in HPI and below Physical Exam Vital Signs: Last Vital Signs Pulse 49 L 11/30/23 08:51 Resp 12 11/30/23 08:51 BP 191/86 H 11/30/23 08:51 Pulse Ox 99 11/30/23 08:51 Oxygen Delivery Method Room Air 11/30/23 08:51 BMI result Body Mass Index 26.8 General: Appears afebrile. Alert and oriented. Mood and affect appropriate. Follows and participates in conversation appropriately. Respiratory effort is unlabored. Able to transition from sit to stand unassisted. Ambulates with bilaterally normal heel strike and toe off. Results Reviewed Results Reviewed: No imaging is available for review. Assessment & Plan Assessment & Plan (1) Sacroiliac joint dysfunction: Code(s): M53.3 - Sacrococcygeal disorders, not elsewhere classified (2) Bilateral primary osteoarthritis of knee: Code(s): M17.0 - Bilateral primary osteoarthritis of knee Plan Will schedule him for a right intraarticular durolane knee injection. Discussed the risks and benefits of the procedure with the patient in detail. All questions were answered. The patient is on board with the plan. Informed the patient that insurance approval is required. We will file a PA for approval and keep him updated. Justification for interventional therapy: ? Patient with average pain > 6/10 ? Patient has exhausted conservative therapy including prior corticosteroid injection, physical therapy, acetaminophen, oral NSAIDs His back pain is relatively well controlled at this point. He will let us know when his symptoms return and we can consider a therapeutic sacroiliac joint injection. Scribed for Dr. Bertrand by Edgard Mcdonald, medical staff coordinator, on 11/30/2022. I, Dr. Bertrand, have personally reviewed and agree with the information entered by the scribe. Coding Level of Care Code Est Pt Level 4 (82921) Diagnoses Sacroiliac joint dysfunction M53.3 Bilateral primary osteoarthritis of knee M17.0
[2023-11-30 08:51] VITALS: BP 191/86; PULSE 49; RESP 12; O2SAT 99; BMI 26.8
== END 2023-11-30 09:03 | disposition home or self-care (01) ==
PROVIDERS: PCP Internal Medicine; Visit Provider Internal Medicine
DX: M53.3 Sacrococcygeal disorders, not elsewhere classified (principal); M17.0 Bilateral primary osteoarthritis of knee
CPT/HCPCS: 99214

== ENCOUNTER → 2023-11-30 08:47 | Outpatient (BNVA) | payer OTHER, SELFPAY | PROVIDERS: PCP Internal Medicine; Visit Provider Internal Medicine | DX: M53.3 Sacrococcygeal disorders, not elsewhere classified (principal); M17.0 Bilateral primary osteoarthritis of knee | CPT/HCPCS: 99212 ==

== ENCOUNTER 2024-01-03 06:05 | Outpatient (REF) | payer OTHER, SELFPAY ==
--- NOTE | ~2024-01-03 | FL_ITS ---
EXAMINATION: XR FLUOROSCOPY WITH IMAGES CLINICAL INFORMATION: Primary osteoarthritis treatment COMPARISON: None available. TECHNIQUE: Fluoroscopy Supervised By: Dr. Collado Fluoroscopy Time: 0.1 minutes. Cumulative Dose air kerma: 0.112 mGy. Images: 2. FINDINGS: Intraoperative fluoroscopy and C-arm views acquired of intra-articular contrast injection knee. FL/FL guidance in treatment room IMPRESSION: 2 images provided, intraarticular injection needle in the joint with contrast injected within the knee.
== END 2024-01-03 06:06 | disposition home or self-care (01) ==
LOC: CF 06:05
PROVIDERS: Visit Provider Internal Medicine
DX: M17.0 Bilateral primary osteoarthritis of knee (principal)
CPT/HCPCS: 20610; J7325; Q9967

== ENCOUNTER 2024-01-03 07:30 | Outpatient (AMB) | payer OTHER, SELFPAY ==
--- NOTE | 2024-01-03 07:28 | A.OFFVIS_ITS ---
Intake Vital Signs 01/03/24 07:35 01/03/24 08:12 Height 5 ft 6 in 5 ft 6 in Weight 169 lb 169 lb BMI 27.3 27.3 BP 118/62 128/70 Blood Pressure Location Rt brachial Rt brachial Position Sitting Sitting Respiration 16 16 Pulse 42 L 47 L Pulse Source Pulse Oximeter Pulse Oximeter Pulse Oximetry (%) 98 99 Oxygen Delivery Method Room Air Room Air Comment Pre-Op Post-Op Intake Visit Reasons: right knee synvisc one Allergies No Known Drug Allergies Allergy (Unknown, Verified 01/03/24 07:35) Unknown HPI right knee synvisc one HPI Details Patient presents for scheduled procedure. Denies any recent cough, cold, infection, fever or other significant changes in medical history since last office visit. [facility] Medical History Benign essential hypertension Chronic kidney disease (CKD), stage III (moderate) GERD (gastroesophageal reflux disease) Gout Overweight (BMI 25.0-29.9) Pure hypercholesterolemia Vitamin D deficiency Surgical History History of cataract surgery Family History Mother No problems noted. Father No problems noted. Social History Housing: Apartment Alcohol intake: current Alcohol intake frequency: holidays/special occasions only Patient Tobacco Use Status: Former Tobacco user e-Cigarette/Vaping Use: Never Used Second Hand Smoke Exposure: Yes Current occupational status: retired Cognitive needs: No Hearing needs: No Vision needs: No Physical Exam Vital Signs: Last Vital Signs Pulse 47 L 01/03/24 08:12 Resp 16 01/03/24 08:12 BP 128/70 01/03/24 08:12 Pulse Ox 99 01/03/24 08:12 Oxygen Delivery Method Room Air 01/03/24 08:12 BMI result Body Mass Index 27.3 Office Procedures Joint Injection/Drain Joint Injection/Drain Details: The left knee was visualized using fluoroscopy. A 25 gauge needle was advanced intra-articularly under fluoroscopy and placement was confirmed with Omnipaque 1 cc 180 milligrams/mL. Following intra-articular confirmation, the prepackaged Synvisc-One syringe containing 6 mL Hylan G-F 20 was retrieved and administered to the joint. The patient tolerated the procedure well. Synvisc Lot # [id number] Exp Date 2026-04 Primary Site: right knee Prep: site was prepped using sterile technique Injected: in the joint Approach Used: anteromedial Procedure: The patient tolerated the procedure well Coding 78679 - Large joint (Hylan Injection) Procedure code (CPT) selection complete Assessment & Plan Assessment & Plan (1) Bilateral primary osteoarthritis of knee: Code(s): M17.0 - Bilateral primary osteoarthritis of knee Plan Patient is status post right knee intra-articular Synvisc-One injection. Patient tolerated procedure well and was discharged home in stable condition with discharge instructions. All questions were answered. We will follow-up via telephone or in clinic to assess response to therapy. A follow-up appointment was made during today's visit. Coding Level of Care Code Procedure Only Diagnoses Bilateral primary osteoarthritis of knee M17.0 CPT Codes Coding - 81387 Large joint: 23944 - Large joint ([id number])
[2024-01-03 07:35] VITALS: BP 118/62; PULSE 42; RESP 16; O2SAT 98; BMI 27.3
[2024-01-03 08:12] VITALS: BP 128/70; PULSE 47; RESP 16; O2SAT 99; BMI 27.3
== END 2024-01-03 08:08 | disposition home or self-care (01) ==
LOC: HO.PMCPRC 07:30
PROVIDERS: PCP Internal Medicine; Visit Provider Internal Medicine
DX: M17.12 Unilateral primary osteoarthritis, left knee (principal)
CPT/HCPCS: 20610; 77002

== ENCOUNTER 2024-04-25 15:57 | Outpatient (AMB) | payer OTHER, SELFPAY ==
[2024-04-25 16:05] VITALS: BP 170/84; PULSE 63; O2SAT 98; BMI 27.8
--- NOTE | 2024-04-25 16:05 | A.OFFPC_ITS ---
Vital Signs 04/25/24 16:05 Height 5 ft 6 in Weight 172 lb BMI 27.8 BP 170/84 H Blood Pressure Location Lt brachial Position Sitting Pulse 63 Pulse Source Pulse Oximeter Pulse Oximetry (%) 98 Oxygen Delivery Method Room Air Intake Visit Reasons: physical and med refills Fabrication Specialist Required: No Network Technology Instructor: Not Required per policy Accompanied by: Self / Same As Patient Allergies No Known Drug Allergies Allergy (Unknown, Verified 04/25/24 16:30) Unknown Medication List - Last Reconciled 04/25/24 by Chuck Riojas MD allopurinol 200 mg (2 x 100 mg) PO DAILY 90 days aspirin 81 mg PO DAILY atorvastatin 40 mg PO DAILY 90 days cholecalciferol (vitamin D3) 50 mcg PO DAILY 90 days hydrochlorothiazide 25 mg PO DAILY losartan 25 mg PO DAILY omeprazole 20 mg PO QAM tadalafil 20 mg (4 x 5 mg) PO DAILY PRN 10 days tizanidine 4 mg PO Q8H PRN 10 days Tobacco use date assessed: 04/25/24 Fall risk assessment: No Falls in past year Last assessed Fall Risk: 04/25/24 Dental Screening Dental Screen Date: 04/25/24 Did you have a dental visit in the last 12 months?: Yes Did you have a dental problem in the last 6 months where you did not have access to dental care?: No Was dental information given to patient?: Patient has dentist HPI physical and med refills HPI Details Patient comes in today for his annual physical examination - was last seen here in June 2023 Patient states that he has been out of his BP meds for a couple of months now and would like to get several of his Rx refilled, including his Tadalafil Adds that he read somewhere recently that one of his blood pressure Rx (Losartan) is not really the recommended choice for blacks and would like to see if he can be switched from this to something different He felt that Losartan was not really helping him much when he was taking it in the past Relates (+) on and off headaches lately; denies any dizziness He denies any chest pains, no SOB No nausea/vomiting, no abdominal pain No change in bowel habits noted He denies any nocturia but states that he has been experiencing on and off urinary urgency recently, especially during long car rides He denies any dysuria Adds that he had a screening colonoscopy and EGD done in [place] with a Dr. Agarwal about 3 years or so ago and recalls being advised that he should plan to get a repeat colonoscopy in 5 years PENDING SALE TO [facility] Medical History (Updated 04/25/24 @ 18:40 by Chuck Riojas MD) Benign prostatic hyperplasia (BPH) with urinary urgency Erectile dysfunction Vitamin D deficiency Chronic kidney disease (CKD), stage III (moderate) Overweight (BMI 25.0-29.9) Gout GERD (gastroesophageal reflux disease) Pure hypercholesterolemia Benign essential hypertension Surgical History (Updated 04/25/24 @ 17:05 by Chuck Riojas MD) History of colonoscopy History of cataract surgery Family History Mother No problems noted. Father No problems noted. Social History Housing: Apartment Alcohol intake: current Alcohol intake frequency: holidays/special occasions only Patient Tobacco Use Status: Former Tobacco user e-Cigarette/Vaping Use: Never Used Second Hand Smoke Exposure: Yes Current occupational status: retired Cognitive needs: No Hearing needs: No Vision needs: No Questionnaire PHQ-9 Over the last 2 weeks, how often have you been bothered by any of the following problems? 1. Little interest or pleasure in doing things: not at all 2. Feeling down, depressed, or hopeless: not at all 3. Trouble falling or staying asleep, or sleeping too much: not at all 4. Feeling tired or having little energy: not at all 5. Poor appetite or overeating: not at all 6. Feeling bad about yourself - or that you are a failure or have let yourself or your family down: not at all 7. Trouble concentrating on things, such as reading the newspaper or watching television: not at all 8. Moving or speaking so slowly that other people could have noticed. Or the opposite - being so fidgety or restless that you have been moving around a lot more than usual: not at all 9. Thoughts that you would be better off or of hurting yourself in some way: not at all Total score: 0 Depression Screening Interpretation: Negative Depression Screening Done: Yes 73630 - PHQ-9 Billing: Yes Source: Developed by Drs. Jeff Mena, Roselia Miller, Lalo Sexton and colleagues, with an educational alia from [employer]. Thrive Questionnaire Date Thrive assessed: 04/25/24 I am a: Patient What is your living situation today?: I have a steady place to live Within the past 12 months, did the food you bought not last and you didn't have the money to get more?: Never true Within the past 12 months, did you worry whether your food would run out before you got money to buy more?: Never true Do you have trouble paying for medicines?: No Do you have trouble getting transportation to medical appointments?: No Do you have trouble paying your heating and electricity bill?: No Do you have trouble taking care of your child, family member or friend?: No Do you have trouble with day-to-day activities such as bathing, preparing meals, shopping, managing finances, etc.?: No Are you currently unemployed and looking for a job?: No Are you interested in more education?: No Please select the resources that you would like help with: None Currently or been in a relationship where the following occur: no concerns reported THRIVE Score: 0 AUDIT C Alcohol Use Questionnaire (AUDIT-C) 1. How often do you have a drink containing alcohol?: Monthly or less 2. How many drinks containing alcohol do you have on a typical day when you are drinking?: 1 or 2 3. How often do you have six or more drinks on one occasion?: Never Total Score: 1 Score Reviewed/Action Taken: Yes SID-7 AMB Questionnaire SID-7 Date SID - 7 assessed: 04/25/24 Feeling nervous, anxious, or on edge: 0 = Not at all Not being able to stop or control worryin = Not at all Worrying too much about different things: 0 = Not at all Trouble relaxin = Not at all Being so restless that it is hard to sit still: 0 = Not at all Becoming easily annoyed or irritable: 0 = Not at all Feeling afraid as if something awful might happen: 0 = Not at all Total SID-7 score (0-4 normal; 5-9 mild; 10-14 moderate; 15-21 severe): 0 Source: Developed by Roselia Merida Kurt Kroenke and colleagues, with an educational alia from [employer]. Review of Systems Const Denies chills, Denies fatigue, Denies fever(s), Reports headache(s) (on and off recently), Denies malaise and Denies weakness Eyes Denies blurry vision, Denies change in vision, Denies irritation and Denies itchy eyes ENT Denies dysphagia, Denies dizziness, Denies otalgia, Reports headache(s) (on and off recently), Denies nasal congestion, Denies neck pain, Denies odynophagia and Denies sore throat Card Denies chest pain, Denies rapid heart rate, Denies irregular heart rhythm, Denies palpitations and Denies dyspnea Resp Denies chest congestion, Denies cough, Denies dyspnea and Denies wheezing GI Denies abdominal pain, Denies bloating, Denies constipation, Denies dysphagia, Denies heartburn, Denies diarrhea, Denies nausea, Denies odynophagia and Denies vomiting Denies hematuria, Denies difficulty urinating, Reports erectile dysfunction, Denies dysuria, Denies nocturia, Denies urinary frequency and Reports urinary urgency (at times) Musc Reports back pain (over the lower back - chronic), Reports arthralgias (chronic pain over both knees), Denies joint swelling, Denies muscle weakness and Denies neck pain Skin/Breast Denies change in pigmentation, Denies lesions, Denies rash and Denies unusual bruising Neuro Denies dizziness, Reports headache(s) (on and off recently), Denies paresthesias and Denies weakness Endo Denies fatigue and Denies palpitations Aller/Immun Denies itchy eyes and Denies wheezing Physical exam (Primary Care) Vital Signs: Last Vital Signs Pulse 63 04/25/24 16:05 BP 170/84 H 04/25/24 16:05 Pulse Ox 98 04/25/24 16:05 Oxygen Delivery Method Room Air 04/25/24 16:05 BMI result Body Mass Index 27.8 Tobacco/Smoking Status: Tobacco use Status Tobacco use date assessed 04/25/24 04/25/24 16:07 Patient Tobacco Use Status Former Tobacco user 04/25/24 16:07 e-Cigarette/Vaping Use Never Used 04/25/24 16:07 PHQ-9: PHQ-9 Score PHQ-9: Total score 0 04/25/24 17:07 Depression Screening Interpretation: Negative Thrive Assessment: Date of Thrive Assessment Date Thrive assessed 04/25/24 04/25/24 16:07 Currently or been in a relationship where the following occur: no concerns reported Const General: no acute distress, alert and awake Orientation/consciousness: patient oriented x3 HENMT Head: Yes normocephalic and Yes atraumatic Ears: external ears normal, TM's normal bilaterally and EAC's normal General nose exam: No nasal discharge present Face and sinus: Yes normal facial exam and Yes sinuses nontender Teeth and gingiva: dentition normal Throat: Yes posterior oropharynx normal and Yes tonsils normal (no TP congestion) Eyes Eyelids: Yes eyelids normal Conjunctivae: conjunctivae normal Pupils: Equal, round and reactive pupils present EOM: EOMs intact bilaterally Neck Neck: Yes no lymphadenopathy and Yes supple Thyroid: Thyroid normal Resp Auscultation: clear to auscultation bilaterally, no rales and no wheezes Cardio Rate: regular rate Rhythm: regular rhythm Heart sounds: no murmurs GI Palpation (GI): Soft to palpation, nontender and No hepatosplenomegaly present Auscultation: normal bowel sounds General: Yes no CVA tenderness Back/Spine/Pelvis Back: no CVA tenderness Thoracic/Lumbar Spine: lumbar spinal tenderness Sacroiliac joints: bilaterally tender to palpation Skin Lesions: no lesions Rashes: no rashes Neuro General: patient oriented x3, moves all extremities, no focal motor deficits and CN's II-XI intact bilaterally Cranial nerves: Yes Equal, round and reactive pupils present Cognition (Neuro): normal cognition Gait exam (Neuro): Normal gait present Extrem General: Yes no clubbing, cyanosis or edema Right lower extremity: knee Details: tenderness; no swelling Left lower extremity: knee Details: tenderness; no swelling Assessment and Plan Assessment & Plan (1) Annual physical exam: Code(s): Z00.00 - Encounter for general adult medical examination without abnormal findings Plan: Check labs Patient reportedly had a screening colonoscopy last done in [place] with a Dr. Agarwal about 2 to 3 years ago and was reportedly advised to get a repeat colonoscopy in 5 years - if this is the case, then he will be coming up due for repeat colonoscopy in another year or two As we do not have any documentation regarding this, will try to obtain copies of his medical records pertaining to his most recent colonoscopy for review and documentation purposes (2) Benign essential hypertension: Code(s): I10 - Essential (primary) hypertension Plan: Reinforced low sodium diet - goal is systolic BP of at least 130 to 140 mm or less, especially in light of his stage 3 CKD Continue HCTZ 25 mg Q AM (Rx refilled); was also on Losartan 25 mg QD before but patient requests to have this changed as based on what he has read, this is supposedly NOT the best antihypertensives for black people I will try switching him back to Amlodipine 5 mg QD but I recall that patient complained of feeling very dizzy all the time while he was on Amlodipine in the past and symptoms have improved with discontinuation of the medication We will see how he does on Amlodipine again this time and if his dizziness recurs, then he may need to just go back on Losartan but at a higher daily dose than his previous 25 mg (3) Chronic kidney disease (CKD), stage III (moderate): Code(s): N18.30 - Chronic kidney disease, stage 3 unspecified Qualifiers: Chronic kidney disease stage 3 subtype: stage 3a (GFR 45-59) Qualified Code(s): N18.31 - Chronic kidney disease, stage 3a Plan: Cautioned again that he currently is in CKD stage 3 based on his lab results from last year and that he should make every effort to keep his BP controlled as best as possible to slow down the decline in his renal function Will continue to monitor his renal function closely/regularly - will have him go and get his follow up labs done JACOB (4) Pure hypercholesterolemia: Code(s): E78.00 - Pure hypercholesterolemia, unspecified Plan: Reinforced low cholesterol diet Continue Atorvastatin 40 mg QD Will recheck labs and FASTING lipids JACOB for follow up (5) Vitamin D deficiency: Code(s): E55.9 - Vitamin D deficiency, unspecified Plan: Continue Vitamin D3 2000 units QD (6) Gout: Code(s): M10.9 - Gout, unspecified Qualifiers: Gout site: unspecified site Gout etiology: unspecified cause Chronicity: unspecified Qualified Code(s): M10.9 - Gout, unspecified Plan: Reinforced low purine diet Serum uric acid level was normal when last checked in September 2022; will recheck JACOB Continue Allopurinol 100 mg 2 tablets QD (7) Bilateral primary osteoarthritis of knee: Code(s): M17.0 - Bilateral primary osteoarthritis of knee Plan: X-rays of the left knee done back in January 2023 revealed (+) moderately severe OA changes of the medial joint space compartment of the left knee He has been going to [facility] for his chronic knee pain and issues and his pain currently appears to be well-controlled (8) Primary osteoarthritis of left hip: Code(s): M16.12 - Unilateral primary osteoarthritis, left hip Plan: Left hip x-rays done in January 2023 revealed (+) very mild OA changes in the left hip Follow up with orthopedics as scheduled (9) Osteoarthritis of lumbar spine: Code(s): M47.816 - Spondylosis without myelopathy or radiculopathy, lumbar region Qualifiers: Spinal osteoarthritis complication: without myelopathy or radiculopathy Qualified Code(s): M47.816 - Spondylosis without myelopathy or radiculopathy, lumbar region Plan: Reinforced activity and weight-lifting restrictions to avoid aggravating his low back pain, which currently appears adequately controlled Follow up with pain management as scheduled (10) GERD (gastroesophageal reflux disease): Code(s): K21.9 - Gastro-esophageal reflux disease without esophagitis Qualifiers: Esophagitis presence: without esophagitis Qualified Code(s): K21.9 - Gastro-esophageal reflux disease without esophagitis Plan: Dietary restrictions reinforced Continue Omeprazole 20 mg QD (11) Erectile dysfunction: Code(s): N52.9 - Male erectile dysfunction, unspecified Qualifiers: Erectile dysfunction type: unspecified Qualified Code(s): N52.9 - Male erectile dysfunction, unspecified Plan: Continue Tadalafil 20 mg QD PRN - patient is again cautioned not to take this IF his blood pressure is still uncontrolled as taking this while his blood pressure is high can further exacerbate his high blood pressure to dangerous levels (12) Benign prostatic hyperplasia (BPH) with urinary urgency: Code(s): N40.1 - Benign prostatic hyperplasia with lower urinary tract symptoms; R39.15 - Urgency of urination Plan: Will check his serum PSA level with his labs JACOB Will also refer him to urology for further evaluation and management (13) Overweight (BMI 25.0-29.9): Code(s): E66.3 - Overweight Plan: Reinforced diet/exercise as tolerated/lose weight Plan Follow up in 4 months Orders: Orders Comprehensive Sherman. Panel Fast Today E78.00 - Pure hypercholesterolemia, unspecified, Z00.00 - Encounter for general adult medical examination without abnormal findings UA CC w/rflx Micro + Cult Today R30.0 - Dysuria, Z00.00 - Encounter for general adult medical examination without abnormal findings Prostate Specific Antigen Today N40.0 - Benign prostatic hyperplasia without lower urinary tract symptoms, Z00.00 - Encounter for general adult medical examination without abnormal findings Complete Blood Count Auto Diff Today D64.9 - Anemia, unspecified, Z00.00 - Encounter for general adult medical examination without abnormal findings Lipid Panel Today E78.00 - Pure hypercholesterolemia, unspecified, Z00.00 - Encounter for general adult medical examination without abnormal findings TSH reflex Free T4 Today E78.00 - Pure hypercholesterolemia, unspecified, Z00.00 - Encounter for general adult medical examination without abnormal findings Vitamin D 25-OH Total Today E55.9 - Vitamin D deficiency, unspecified, Z00.00 - Encounter for general adult medical examination without abnormal findings Vitamin B12 and Folate Today E53.8 - Deficiency of other specified B group vitamins IRON PROFILE Today D50.9 - Iron deficiency anemia, unspecified Uric Acid Today M10.9 - Gout, unspecified Referrals Urology Referral N40.1 - Benign prostatic hyperplasia with lower urinary tract symptoms, R39.15 - Urgency of urination Medications: New amlodipine 5 mg PO DAILY 90 days 90 tabs 1RF Changed From hydrochlorothiazide 25 mg PO DAILY 100 tabs 2RF To hydrochlorothiazide 25 mg PO DAILY 90 days 90 tabs 1RF From omeprazole 20 mg PO QAM 100 caps 2RF To omeprazole 20 mg PO QAM 90 days 90 caps 1RF Refilled cholecalciferol (vitamin D3) 50 mcg PO DAILY 90 days 90 tabs 3RF R79.89 - Other specified abnormal findings of blood chemistry tadalafil administer approximately 30min before sexual activity; do not use more than 1 dose per 24hrs 20 mg (4 x 5 mg) PO DAILY 10 days PRN 40 tabs 2RF sexual activity atorvastatin 40 mg PO DAILY 90 days 90 tabs 1RF Discontinued losartan Discontinued Reason: Doctor's Order 25 mg PO DAILY 90 tabs 1RF Coding Level of Care Code Est Pt Prev Care >65y(39711) Diagnoses Annual physical exam Z00.00 Benign essential hypertension I10 Stage 3a chronic kidney disease N18.31 Chronic kidney disease stage 3 subtype: stage 3a (GFR 45-59) Pure hypercholesterolemia E78.00 Vitamin D deficiency E55.9 Gout, unspecified cause, unspecified chronicity, unspecified site M10.9 Gout site: unspecified site Gout etiology: unspecified cause Chronicity: unspecified Bilateral primary osteoarthritis of knee M17.0 Primary osteoarthritis of left hip 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 Spinal osteoarthritis complication: without myelopathy or radiculopathy Gastroesophageal reflux disease without esophagitis K21.9 Esophagitis presence: without esophagitis Erectile dysfunction, unspecified erectile dysfunction type N52.9 Erectile dysfunction type: unspecified Benign prostatic hyperplasia (BPH) with urinary urgency N40.1; R39.15 Overweight (BMI 25.0-29.9) E66.3
== END 2024-04-25 16:45 | disposition home or self-care (01) ==
PROVIDERS: PCP Internal Medicine; Visit Provider Internal Medicine
DX: Z00.00 Encounter for general adult medical examination without abnormal findings (principal); I12.9 Hypertensive chronic kidney disease with stage 1 through stage 4 chronic kidney disease, or unspecified chronic kidney disease; N18.31 Chronic kidney disease, stage 3a; E78.00 Pure hypercholesterolemia, unspecified; E55.9 Vitamin D deficiency, unspecified; M10.9 Gout, unspecified; M17.0 Bilateral primary osteoarthritis of knee; M16.12 Unilateral primary osteoarthritis, left hip; M47.816 Spondylosis without myelopathy or radiculopathy, lumbar region; K21.9 Gastro-esophageal reflux disease without esophagitis; N52.9 Male erectile dysfunction, unspecified; N40.1 Benign prostatic hyperplasia with lower urinary tract symptoms
CPT/HCPCS: 99397

== ENCOUNTER 2024-05-01 06:26 | Outpatient (REF) | payer OTHER, SELFPAY ==
[2024-05-01 06:43] LABS: MANUAL DIFF FLAG NO
[2024-05-01 07:35] LABS: Appearance Urine Clear; Basophils Percent Auto 0.5 % (0-2); Color Urine Yellow; Eosinophils Absolute Auto 0.3 X10*3/uL (0.0-0.4); Eosinophils Percent Auto 4.1 % (0-4); Glucose Urine UA Negative (Negative); Hematocrit 40.4 % (42.0-52.0); Hemoglobin 13.8 g/dl (14.0-18.0); Imm Gran Abs Auto 0.03 X10*3/uL (0.00-0.03); Imm Gran Pct Auto 0.4 % (0.0-0.4); Leukocyte Esterase Urine Negative (Negative); Lymphocytes Absolute Auto 2.7 X10*3/uL (1.2-4.9); Lymphocytes Percent Auto 33.4 % (20-40); Mean Corpuscular HGB Conc 34.2 g/dl (31.0-36.0); Mean Corpuscular Hemoglobin 30.9 pg (27.0-33.0); Mean Corpuscular Volume 90.6 fL (80.0-98.0); Mean Platelet Volume 9.7 fL (9.4-12.4); Monocytes Absolute Auto 0.8 X10*3/uL (0.1-1.2); Monocytes Percent Auto 10.2 % (2-11); Neutrophils Absolute Auto 4.1 x10*3/uL (2.0-8.3); Neutrophils Percent Auto 51.4 % (45-73); Nitrite Urine Negative (Negative); Platelet Count 275 X10*3/uL (160-400); Red Blood Count 4.46 X10*6/uL (4.60-5.80); Red Cell Distribution Width 13.8 % (11.0-16.0); Specific Gravity - Urine 1.015 (1.005-1.025); Urine Blood Negative (Negative); Urine Ketones Negative (Negative); Urine Protein Trace mg/dL (Neg-Trace); White Blood Count 8.1 X10*3/uL (4.8-10.8)
[2024-05-01 08:06] LABS: Alanine Aminotransferase 18 U/L (0-40); Albumin Level 4.1 g/dL (3.5-5.0); Alkaline Phosphatase 66 U/L (39-117); Anion Gap 12 (12-20); Aspartate Amino Transferase 19 U/L (5-37); Bilirubin Total 0.4 mg/dL (0.0-1.0); Blood Urea Nitrogen 19 mg/dL (9-16); Calcium 9.7 mg/dL (8.4-10.2); Carbon Dioxide 29 mmol/L (22-29); Chloride 104 mmol/L (96-108); Cholesterol 255 mg/dL (<200); Estimated Glomerular Filt Rate 46; Glucose Fasting 111 mg/dL (60-99); HDL Cholesterol 73 mg/dL (>40); Iron 55 mcg/dL (45-160); LDL Cholesterol Calculated 156 mg/dL (<100); Percent Iron Saturation 21 % (15-50); Potassium 3.9 mmol/L (3.3-5.1); Sodium 141 mmol/L (135-145); Total Iron Binding Capacity 263 mcg/dL (228-428); Total Protein 7.6 g/dL (6.5-8.0); Triglycerides 131 mg/dL (<150); Unsaturated Iron Binding 208 ug/dL; Uric Acid 9.6 mg/dL (3.4-7.0)
[2024-05-01 08:22] LABS: TSH reflex Free T4 1.15 uIU/mL (0.32-4.0); Vitamin D 25-OH Total 31.3 ng/mL (>30)
[2024-05-01 08:36] LABS: Folate 4.4 ng/mL (> or = 4.0); Prostate Specific Antigen 1.86 ng/mL (<0.05-4.0); Vitamin B12 374 pg/mL (200-900)
== END 2024-05-01 06:27 | disposition home or self-care (01) ==
LOC: HO.LAB 06:26
PROVIDERS: PCP Internal Medicine; Visit Provider Internal Medicine
DX: Z00.00 Encounter for general adult medical examination without abnormal findings (principal); D64.9 Anemia, unspecified; E78.00 Pure hypercholesterolemia, unspecified; D50.9 Iron deficiency anemia, unspecified; E55.9 Vitamin D deficiency, unspecified; E53.8 Deficiency of other specified B group vitamins; M10.9 Gout, unspecified; R30.0 Dysuria; N40.0 Benign prostatic hyperplasia without lower urinary tract symptoms; Z12.5 Encounter for screening for malignant neoplasm of prostate
CPT/HCPCS: 36415; 80053; 80061; 81003; 82306; 82607; 82746; 83540; 84153; 84443; 84550; 85025

== ENCOUNTER 2024-07-02 11:00 | Outpatient (AMB) | payer OTHER, SELFPAY ==
--- NOTE | 2024-07-02 11:01 | A.OFFVIS_ITS ---
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 Riojas. He has a past medical history of ED, vitamin-D deficiency, chronic kidney disease stage 3, overweight, gout, GERD, hypercholesteremia, and hypertension. Presents to the office today as a new patient for ongoing lower urinary tract symptoms as well as erectile dysfunction. In discussion with the patient today he reports noting ongoing issues with urinary urgency and frequency over the last year however feels they are worsening. He also reports a longstanding history of erectile dysfunction. He reports having followed up with his PCP at which time he was started on p.r.n. Cialis in recommendations were made for urology referral for further assessment evaluation. He reports to have not started Cialis as he was awaiting today's appointment to discuss treatment options. HALEIGH offered however deferred. He denies incontinence, nocturia, hematuria, dysuria, foul smelling urine, changes to urinary stream, flank pain, fever, and or chills. In office urinalysis results reviewed with the patient today. Discuss ed at length potential causes of lower urinary tract symptoms as well as erectile dysfunction. Further treatment options were discussed. He otherwise offers no other issues or concerns at this time. [facility] Medical History (Updated 07/02/24 @ 11:35 by ABRAN Carreno) Benign prostatic hyperplasia (BPH) with urinary urgency Erectile dysfunction Vitamin D deficiency Chronic kidney disease (CKD), stage III (moderate) Overweight (BMI 25.0-29.9) Gout GERD (gastroesophageal reflux disease) Pure hypercholesterolemia Benign essential hypertension Surgical History (Updated 04/25/24 @ 17:05 by Chuck Riojas MD) History of colonoscopy History of cataract surgery Family History Mother No problems noted. Father No problems noted. Social History Housing: Apartment Alcohol intake: current Alcohol intake frequency: holidays/special occasions only Patient Tobacco Use Status: Former Tobacco user e-Cigarette/Vaping Use: Never Used Second Hand Smoke Exposure: Yes Current occupational status: retired Cognitive needs: No Hearing needs: No Vision needs: No Review of Systems Const Reports no additional complaints Eyes Reports no additional complaints ENT Reports no additional complaints Card Reports as per HPI Resp Reports no additional complaints GI Reports as per HPI Reports as per HPI Musc Reports no additional complaints Neuro Reports no additional complaints Psych Reports no additional complaints Endo Reports no additional complaints Alexander/Lymph Reports no additional complaints Aller/Immun Reports no additional complaints Physical Exam Const General: cooperative, healthy appearing, comfortable, no acute distress, well developed, alert and awake Nutritional Appearance: overweight Orientation/consciousness: patient oriented x3 Limitations: no limitations HEENT Head: Yes normal to inspection, Yes normocephalic and Yes atraumatic Ears: hearing grossly normal bilaterally Eyes General: appearance normal, both eyes and all related structures Neck Neck: Yes normal visual inspection and Yes trachea midline Chest Chest palpation & inspection: normal inspection of the chest Resp Effort & Inspection: normal respiratory effort and able to speak in complete sentences Cardio Rate: regular rate GI Inspection: Yes normal to inspection General: Yes no CVA tenderness Back/Spine/Pelvis Back: no CVA tenderness Skin General skin exam: no rashes or lesions noted Neuro General: patient oriented x3 Extrem General: Yes normal to inspection Psych Appearance: grossly normal and well kempt Mental Status: mental status grossly normal Speech and movement: Normal speech and movement present and Clear speech present Affect: normal affect Attitude: cooperative Thought process: Normal thought process present Thought content: Normal thought content present Insight: Fair insight present (Psych) Judgement: Fair judgement present (Psych) Results AMB Urinalysis, Automated UA Leukoctes 0 Adamaris/uL Last Edit by ARIA Goldsmith on 07/02/24 11:17 UA Nitrite Negative Last Edit by ARIA Goldsmith on 07/02/24 11:17 UA Urobilinogen 0.2 mg/dL Last Edit [facility] 07/02/[facility] 11:1 7 UA Protein 15 mg/dL Last Edit by Dilip Howell [facility] on 07/02/24 11:17 UA pH 7.0 Last Edit by Dilip Howell [facility] on 07/02/24 11:17 UA Blood 0 Celestino/uL Last Edit by Dilip Howell [facility] on 07/02/24 11:17 UA Specific [place] 1.015 Last Edit by Dilip Howell [facility] on 07/02/24 11: 17 UA Ketone Negative Last Edit by Dilip Howell [facility] on 07/02/24 11:17 UA Bilirubin 0 mg/dL Last Edit by Dilip Howell [facility] on 07/02/24 11:17 UA Glucose 0 mg/dL Last Edit [facility] on 07/02/24 11:17 Results Reviewed Results Reviewed: Laboratory Last Values Urine pH (Auto) 7.0 07/02/24 11:16 Specific [place] (Auto) 1.015 07/02/24 11:16 Urine Protein (Auto) 15 mg/dL 07/02/24 11:16 Glucose (UA)(Auto) 0 mg/dL 07/02/24 11:16 Urine Ketones (Auto) Negative 07/02/24 11:16 Urine Blood (Auto) 0 Celestino/uL 07/02/24 11:16 Urine Nitrite (Auto) Negative 07/02/24 11:16 Urine Bilirubin (Auto) 0 mg/dL 07/02/24 11:16 Urine Urobilinogen (Auto) 0.2 mg/dL 07/02/24 11:16 Leukocyte Esterase (Auto) 0 Adamaris/uL 07/02/24 11:16 Assessment & Plan Assessment & Plan (1) Lower urinary tract symptoms: Code(s): R39.9 - Unspecified symptoms and signs involving the genitourinary system Category: Medical (2) Erectile dysfunction: Code(s): N52.9 - Male erectile dysfunction, unspecified Category: Medical Qualifiers: Erectile dysfunction type: unspecified Qualified Code(s): N52.9 - Male erectile dysfunction, unspecified Plan In office urinalysis results reviewed with the patient today; as noted above. Discussed at length potential causes of erectile dysfunction as well as lower urinary tract symptoms patient is experiencing. Discussed bladder triggers/irritants. Discussed lifestyle modifications to assist with lower urinary tract symptoms as well as erectile dysfunction. Start 5 mg of Cialis daily as discussed and prescribed. Prescription provided for p.r.n. Cialis 1 hour prior to sexual activity. Will obtain PSA for further assessment evaluation. Will obtain retroperitoneal ultrasound for assessment evaluation. Discussed possible near future in office urodynamics and or in office cystoscopy for further assessment evaluation. Follow-up in 1-3 months with imaging and labs to be completed prior; or sooner with any issues, concerns, and or questions. Orders: Orders AMB Urinalysis Automated Today Z13.9 - Encounter for screening, unspecified Prostate Specific Antigen Today N40.1 - Benign prostatic hyperplasia with lower urinary tract symptoms, R39.15 - Urgency of urination US retroperitoneal comp Today R39.9 - Unspecified symptoms and signs involving the genitourinary system Medications: New tadalafil (Cialis) [id number] [facility] [id number] Member [id number] 5 mg PO DAILY 90 days 90 tabs 1RF tadalafil (Cialis) administer approximately 30min before sexual activity; do not use more than 1 dose per 24hrs [id number] [facility] [id number] Member [id number] 20 mg PO .PRN 90 days PRN 45 tabs 0RF sexual activity Discontinued tadalafil administer approximately 30min before sexual activity; do not use more than 1 dose per 24hrs Discontinued Reason: Doctor's Order 20 mg (4 x 5 mg) PO DAILY 10 days PRN 40 tabs 2RF sexual activity Patient Instructions: The patient had an opportunity to ask questions regarding the treatment plan. All questions were answered. Physical exam, labs, and imaging were discussed and reviewed in detail. As well as risks, benefits, and discussion of treatment choices. No major barriers to understanding were identified. The patient expressed understanding and agreement with the above treatment plan. The patient was made aware they should contact our office by phone for worsening of their current condition, the appearance of new symptoms, or with any questions or concerns. Compliance is encouraged with any medications and follow up testing that is ordered. It is a privilege to be allowed the opportunity to participate in? your urological care.? Again, if you have any questions or concerns If you have any questions or concerns please do not hesitate to contact me. The office is [phone]. This note is constructed using voice recognition software. While every effort has been made to ensure accuracy manager trade marketing errors may have been included. Yours sincerely, ABRAN Carreno Coding Level of Care Code New Pt Level 4 (16260) Diagnoses Lower urinary tract symptoms R39.9 Erectile dysfunction, unspecified erectile dysfunction type N52.9 Erectile dysfunction type: unspecified
== END 2024-07-02 11:46 | disposition home or self-care (01) ==
PROVIDERS: PCP Internal Medicine; Visit Provider Nurse Practitioner Family
DX: R39.9 Unspecified symptoms and signs involving the genitourinary system (principal); N52.9 Male erectile dysfunction, unspecified; Z13.9 Encounter for screening, unspecified
CPT/HCPCS: 99204; 99214

== ENCOUNTER → 2024-07-02 11:00 | Outpatient (BNVA) | payer OTHER, SELFPAY | PROVIDERS: PCP Internal Medicine; Visit Provider Nurse Practitioner Family | DX: R39.9 Unspecified symptoms and signs involving the genitourinary system (principal); N52.9 Male erectile dysfunction, unspecified | CPT/HCPCS: 81003; 99202 ==

== ENCOUNTER 2024-08-06 10:41 | Outpatient (REF) | payer OTHER, SELFPAY ==
--- NOTE | ~2024-08-06 | US_ITS ---
EXAMINATION: US RETROPERITONEAL COMPLETE (RENAL) CLINICAL INFORMATION: Unspecified symptoms and signs involving the genitourinary system. Recurrent UTIs. History of CKD class III. COMPARISON: None available. TECHNIQUE: Real-time imaging of the kidneys and bladder. FINDINGS: RIGHT KIDNEY: 9.6 x 5.3 x 4.7 cm (SAG x AP x TRV). The kidney is normal in size, contour, and echogenicity. Renal cortical thickness is normal. No renal calculi or hydronephrosis. 2 benign Bosniak class I renal cysts are noted, the largest at the upper pole measuring 3.9 cm which require no additional imaging or follow-up. No solid renal masses are seen. LEFT KIDNEY: 9.8 x 5.8 x 5.1 cm (SAG x AP x TRV). The kidney is normal in size, contour, and echogenicity. Renal cortical thickness is normal. No renal calculi or hydronephrosis. At the upper pole of the left kidney, there is a mass measuring 1.7 x 1.6 x 1.8 cm. This is avascular. It is not a simple cyst. There is a mural solid element measuring about 1 cm in size. BLADDER: Partially distended. Bilateral ureteral jets are demonstrated. Prevoid bladder volume is 108 mL. Postvoid bladder volume is 4.0 mL. ADDITIONAL FINDINGS: There is mild BPH with a volume of 37 mL. US/US retroperitoneal comp IMPRESSION: 1. There is a 1.8 cm mass in the upper pole of the left kidney with a mural solid element. Further evaluation is recommended with precontrast and postcontrast renal MRI. 2. Benign Bosniak class I renal cysts need no additional imaging or follow-up. 3. Mild BPH. Electronically signed by: Delon Caballero MD 08/13/2024 02:10 PM EDT
== END 2024-08-06 10:42 | disposition home or self-care (01) ==
LOC: HO.US 10:41
PROVIDERS: PCP Internal Medicine; Visit Provider Nurse Practitioner Family
DX: R39.9 Unspecified symptoms and signs involving the genitourinary system (principal)
CPT/HCPCS: 76770

== ENCOUNTER 2024-08-21 09:35 | Outpatient (REF) | payer OTHER, SELFPAY ==
[2024-08-21 11:47] LABS: Prostate Specific Antigen 0.99 ng/mL (<0.05-4.0)
== END 2024-08-21 09:36 | disposition home or self-care (01) ==
LOC: HO.10HDL 09:35
PROVIDERS: Visit Provider Urology
DX: Z12.5 Encounter for screening for malignant neoplasm of prostate (principal); N40.1 Benign prostatic hyperplasia with lower urinary tract symptoms; R39.15 Urgency of urination
CPT/HCPCS: 36415; 84153

== ENCOUNTER 2024-08-26 14:37 | Outpatient (AMB) | payer OTHER, SELFPAY ==
--- NOTE | 2024-08-26 14:42 | MHC.PC.OV ---
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: No Accompanied by: Self / Same As Patient Allergies No Known Drug Allergies Allergy (Unknown, Verified 08/26/24 15:20) Unknown Medication List - Last Reconciled 08/26/24 by Chuck Riojas MD allopurinol 200 mg (2 x 100 mg) PO DAILY 90 days aspirin 81 mg PO DAILY cholecalciferol (vitamin D3) 50 mcg PO DAILY 90 days hydrochlorothiazide 25 mg PO DAILY 90 days omeprazole 20 mg PO QAM 90 days tadalafil (Cialis) 5 mg PO DAILY 90 days tadalafil (Cialis) 20 mg PO .PRN PRN 90 days tizanidine 4 mg PO Q8H PRN 10 days Tobacco use date assessed: 08/26/24 Fall risk assessment: No Falls in past year Last assessed Fall Risk: 08/26/24 Dental Screening Dental Screen Date: 08/26/24 Did you have a dental visit in the last 12 months?: Yes Did you have a dental problem in the last 6 months where you did not have access to dental care?: No Was dental information given to patient?: Patient has dentist HPI [facility] f/u HPI Details Patient comes in today for his follow up visit States that he's had a recurrent rash/lesion over the cleft in between his buttocks for over a year now States that the rash or lesion itch and/or hurt at times He also currently has some scaling and itchy rash in between a couple of toes on his foot He denies any headaches or dizziness Denies any chest pains, no SOB No nausea/vomiting, no abdomnal pain No change in bowel habits noted He had some follow up labs done back in April 2024 - to discuss his results has high cholesterol, uric acid and sugar - DIET [facility] Medical History (Updated 08/31/24 @ 22:32 by Chuck Riojas MD) Impaired fasting glucose Benign prostatic hyperplasia (BPH) with urinary urgency Erectile dysfunction Vitamin D deficiency Chronic kidney disease (CKD), stage III (moderate) Overweight (BMI 25.0-29.9) Gout GERD (gastroesophageal reflux disease) Pure hypercholesterolemia Benign essential hypertension Surgical History History of colonoscopy History of cataract surgery Family History Mother No problems noted. Father No problems noted. Social History Housing: Apartment Alcohol intake: current Alcohol intake frequency: holidays/special occasions only Patient Tobacco Use Status: Former Tobacco user e-Cigarette/Vaping Use: Never Used Second Hand Smoke Exposure: Yes Current occupational status: retired Cognitive needs: No Hearing needs: No Vision needs: No Questionnaire PHQ-9 Over the last 2 weeks, how often have you been bothered by any of the following problems? 1. Little interest or pleasure in doing things: not at all 2. Feeling down, depressed, or hopeless: not at all 3. Trouble falling or staying asleep, or sleeping too much: not at all 4. Feeling tired or having little energy: not at all 5. Poor appetite or overeating: not at all 6. Feeling bad about yourself - or that you are a failure or have let yourself or your family down: not at all 7. Trouble concentrating on things, such as reading the newspaper or watching television: not at all 8. Moving or speaking so slowly that other people could have noticed. Or the opposite - being so fidgety or restless that you have been moving around a lot more than usual: not at all 9. Thoughts that you would be better off or of hurting yourself in some way: not at all Total score: 0 Depression Screening Interpretation: Negative Depression Screening Done: Yes 92911 - PHQ-9 Billing: Yes Source: Developed by Drs. Jeff Mena, Roselia Miller, Lalo Sexton and colleagues, with an educational alia from [employer]. Thrive Questionnaire Date Thrive assessed: 08/26/24 I am a: Patient What is your living situation today?: I have a steady place to live Within the past 12 months, did the food you bought not last and you didn't have the money to get more?: Never true Within the past 12 months, did you worry whether your food would run out before you got money to buy more?: Never true Do you have trouble paying for medicines?: No Do you have trouble getting transportation to medical appointments?: No Do you have trouble paying your heating and electricity bill?: No Do you have trouble taking care of your child, family member or friend?: No Do you have trouble with day-to-day activities such as bathing, preparing meals, shopping, managing finances, etc.?: No Are you currently unemployed and looking for a job?: No Are you interested in more education?: No Please select the resources that you would like help with: None Currently or been in a relationship where the following occur: No concerns reported THRIVE Score: 0 AUDIT C Alcohol Use Questionnaire (AUDIT-C) 1. How often do you have a drink containing alcohol?: Monthly or less 2. How many drinks containing alcohol do you have on a typical day when you are drinking?: 1 or 2 3. How often do you have six or more drinks on one occasion?: Never Total Score: 1 Score Reviewed/Action Taken: Yes SID-7 AMB Questionnaire SID-7 Date SID - 7 assessed: 08/26/24 Feeling nervous, anxious, or on edge: 0 = Not at all Not being able to stop or control worryin = Not at all Worrying too much about different things: 0 = Not at all Trouble relaxin = Not at all Being so restless that it is hard to sit still: 0 = Not at all Becoming easily annoyed or irritable: 0 = Not at all Feeling afraid as if something awful might happen: 0 = Not at all Total SID-7 score (0-4 normal; 5-9 mild; 10-14 moderate; 15-21 severe): 0 Source: Developed by Drs. Jeff Mena, Roselia Miller, Lalo Sexton and colleagues, with an educational alia from [employer]. Review of Systems Const Denies chills, Denies fatigue, Denies fever(s) and Denies headache(s) ENT Denies dysphagia, Denies dizziness, Denies otalgia, Denies headache(s), Denies neck pain, Denies odynophagia and Denies sore throat Card Denies chest pain, Denies irregular heart rhythm, Denies palpitations and Denies dyspnea Resp Denies chest congestion, Denies cough and Denies dyspnea GI Denies abdominal pain, Denies constipation, Denies dysphagia, Denies heartburn, Denies diarrhea, Denies nausea, Denies odynophagia and Denies vomiting Denies difficulty urinating, Reports erectile dysfunction, Denies dysuria, Denies nocturia, Denies urinary frequency and Reports urinary urgency (at times) Musc Reports back pain (over the lower back - chronic), Reports arthralgias (chronic pain over both knees) and Denies neck pain Skin/Breast Details: (+) rash over the inguinal areas bilaterally; (+) itchy rash in between a few toes on both feet Neuro Denies dizziness, Denies headache(s) and Denies paresthesias Endo Denies fatigue and Denies palpitations Physical exam (Primary Care) Vital Signs: Last Vital Signs Pulse 53 08/26/24 14:43 BP 134/62 08/26/24 14:43 Pulse Ox 98 08/26/24 14:43 Oxygen Delivery Method Room Air 08/26/24 14:43 BMI result Body Mass Index 26.7 Tobacco/Smoking Status: Tobacco use Status Tobacco use date assessed 08/26/24 08/26/24 14:48 Patient Tobacco Use Status Former Tobacco user 08/26/24 14:48 e-Cigarette/Vaping Use Never Used 08/26/24 14:48 PHQ-9: PHQ-9 Score PHQ-9: Total score 0 08/26/24 15:22 Depression Screening Interpretation: Negative Thrive Assessment: Date of Thrive Assessment Date Thrive assessed 08/26/24 08/26/24 14:48 Currently or been in a relationship where the following occur: No concerns reported Const General: no acute distress and alert HENMT Ears: TM's normal bilaterally and EAC's normal Throat: Yes posterior oropharynx normal and Yes tonsils normal (no TP congestion) Neck Neck: Yes no lymphadenopathy and Yes supple Thyroid: Thyroid normal Resp Auscultation: clear to auscultation bilaterally, no rales and no wheezes Cardio Rate: regular rate Rhythm: regular rhythm Heart sounds: no murmurs GI Palpation (GI): Soft to palpation and nontender Auscultation: normal bowel sounds General: Yes no CVA tenderness Back/Spine/Pelvis Back: no CVA tenderness Thoracic/Lumbar Spine: lumbar spinal tenderness Sacroiliac joints: bilaterally tender to palpation Skin Other: (+) large patchy erythematous rash over the inguinal areas bilaterally; (+) scaling rash noted in between some toes on both feet Extrem General: Yes no clubbing, cyanosis or edema Right lower extremity: knee Details: tenderness; no swelling Left lower extremity: knee Details: tenderness; no swelling Office Procedures Flu Questionnaire Does the patient have a severe egg allergy?: No Does the patient have severe life threatening allergies?: No Does the patient have a fever or illness today?: No Has the patient ever had Guillain-[place] Syndrome?: No Has the patient ever had any past reaction to a flu shot?: No Immunizations Fluarix Triv [id number] (PF) 45 mcg (15 mcg x 3)/0.5 mL IM syringe Performing Provider: Chuck Riojas MD Performing Location: [facility] Documented (not given) by: AGNES Jorge on 08/26/24 14:55 Reason Not Given: Patient Refused Results Reviewed Results Reviewed: Laboratory Tests 05/01/24 08/21/24 06:42 09:40 WBC 8.1 Hgb 13.8 L Hct 40.4 L Plt Count 275 Sodium 141 Potassium 3.9 Creatinine 1.48 H Estimated GFR 46 Fasting Glucose 111 H Uric Acid 9.6 H Calcium 9.7 AST 19 ALT 18 Triglycerides 131 Cholesterol 255 H LDL Cholesterol, Calc 156 H HDL Cholesterol 73 Prostate Specific Ag 0.99 Vitamin B12 374 25-OH Vitamin D Total 31.3 TSH 1.15 Ur Specific [place] 1.015 Urine Protein Trace Urine Glucose (UA) Negative Coding Level of Care Code Est Pt Level 4 (15563) Diagnoses Benign essential hypertension I10 Pure hypercholesterolemia E78.00 Stage 3a chronic kidney disease N18.31 Chronic kidney disease stage 3 subtype: stage 3a (GFR 45-59) Impaired fasting glucose R73.01 Gout, unspecified cause, unspecified chronicity, unspecified site M10.9 Gout site: unspecified site Gout etiology: unspecified cause Chronicity: unspecified Vitamin D deficiency E55.9 Bilateral primary osteoarthritis of knee M17.0 Primary osteoarthritis of left hip 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 Spinal osteoarthritis complication: without myelopathy or radiculopathy Gastroesophageal reflux disease without esophagitis K21.9 Esophagitis presence: without esophagitis Erectile dysfunction, unspecified erectile dysfunction type N52.9 Erectile dysfunction type: unspecified Benign prostatic hyperplasia (BPH) with urinary urgency N40.1; R39.15 Tinea cruris B35.6 Tinea pedis, unspecified laterality B35.3 Laterality: unspecified laterality Overweight (BMI 25.0-29.9) E66.3 Assessment & Plan Assessment & Plan (1) Benign essential hypertension: Code(s): I10 - Essential (primary) hypertension Category: Medical Plan: Reinforced low sodium diet - goal is systolic BP of at least 130 to 140 mm or less, especially in light of his stage 3 CKD Continue HCTZ 25 mg Q AM and Amlodipine 5 mg QD He was on Losartan 25 mg QD before but patient requests to have this changed as this is supposedly NOT the best antihypertensives for black people from what he has read (2) Pure hypercholesterolemia: Code(s): E78.00 - Pure hypercholesterolemia, unspecified Category: Medical Plan: Results of his labs done back in April 2024 reviewed and discussed with patient He is advised that his cholesterol levels were elevated - total cholesterol was at 255 mg/dl and LDL cholesterol was at 156 mg/dl Reinforced low cholesterol diet Continue Atorvastatin 40 mg QD Will recheck his labs and fasting lipids in 4 months for follow up (3) Chronic kidney disease (CKD), stage III (moderate): Code(s): N18.30 - Chronic kidney disease, stage 3 unspecified Category: Medical Qualifiers: Chronic kidney disease stage 3 subtype: stage 3a (GFR 45-59) Qualified Code(s): N18.31 - Chronic kidney disease, stage 3a Plan: Have cautioned patient again that he currently is in CKD stage 3 based on his lab results from a couple of months ago Will continue to monitor his renal function closely/regularly (4) Impaired fasting glucose: Code(s): R73.01 - Impaired fasting glucose Category: Medical Plan: Have advised patient that his FBS was slightly elevated at 111 mg/dl Reinforced low calorie/low carb diet Will recheck his FBS and check his HgbA1c as well in 4 months (5) Gout: Code(s): M10.9 - Gout, unspecified Category: Medical Qualifiers: Gout site: unspecified site Gout etiology: unspecified cause Chronicity: unspecified Qualified Code(s): M10.9 - Gout, unspecified Plan: Her serum uric acid level was elevated on his labs done a few months ago at 9.6 mg/dl; it was normal when it was previously checked in September 2022 Reinforced low purine diet Continue Allopurinol 100 mg 2 tablets QD Will recheck her serum uric acid level in 4 months for follow up (6) Vitamin D deficiency: Code(s): E55.9 - Vitamin D deficiency, unspecified Category: Medical Plan: Continue Vitamin D3 2000 units QD (7) Bilateral primary osteoarthritis of knee: Code(s): M17.0 - Bilateral primary osteoarthritis of knee Category: Medical Plan: X-rays of the left knee done back in January 2023 revealed (+) moderately severe OA changes of the medial joint space compartment of the left knee He has been going to [facility] for his chronic knee pain and issues and his pain currently appears to be well-controlled (8) Primary osteoarthritis of left hip: Code(s): M16.12 - Unilateral primary osteoarthritis, left hip Category: Medical Plan: Left hip x-rays done in January 2023 revealed (+) very mild OA changes in the left hip Follow up with orthopedics as scheduled (9) Osteoarthritis of lumbar spine: Code(s): M47.816 - Spondylosis without myelopathy or radiculopathy, lumbar region Category: Medical Qualifiers: Spinal osteoarthritis complication: without myelopathy or radiculopathy Qualified Code(s): M47.816 - Spondylosis without myelopathy or radiculopathy, lumbar region Plan: Reinforced activity and weight-lifting restrictions to avoid aggravating his low back pain, which currently appears adequately controlled Follow up with pain management as scheduled (10) GERD (gastroesophageal reflux disease): Code(s): K21.9 - Gastro-esophageal reflux disease without esophagitis Category: Medical Qualifiers: Esophagitis presence: without esophagitis Qualified Code(s): K21.9 - Gastro-esophageal reflux disease without esophagitis Plan: Dietary restrictions reinforced Continue Omeprazole 20 mg QD (11) Erectile dysfunction: Code(s): N52.9 - Male erectile dysfunction, unspecified Category: Medical Qualifiers: Erectile dysfunction type: unspecified Qualified Code(s): N52.9 - Male erectile dysfunction, unspecified Plan: Continue Tadalafil 20 mg QD PRN Patient is again cautioned/reminded not to take this IF his blood pressure is uncontrolled or high as taking this while his blood pressure is high can further exacerbate his high blood pressure to dangerous levels (12) Benign prostatic hyperplasia (BPH) with urinary urgency: Code(s): N40.1 - Benign prostatic hyperplasia with lower urinary tract symptoms; R39.15 - Urgency of urination Category: Medical Plan: His serum PSA level was low at 0.99 when checked last week Follow up with urology as scheduled (13) Tinea cruris: Code(s): B35.6 - Tinea cruris Category: Medical Plan: Will start patient on Nystatin powder [id number] units/gm apply to rash over the inguinal /groin areas TID x 7 to 10 days (14) Tinea pedis: Code(s): B35.3 - Tinea pedis Category: Medical Qualifiers: Laterality: unspecified laterality Qualified Code(s): B35.3 - Tinea pedis Plan: Will start patient on Lotrisone cream to the rash in between his toes BID x 10 days (15) Overweight (BMI 25.0-29.9): Code(s): E66.3 - Overweight Category: Medical Plan: Reinforced diet/exercise as tolerated/lose weight Plan Follow up in 4 months Orders: Orders Influenza [id number] Immunization 08/26/24 Z23 - Encounter for immunization Lipid Panel 4 Months E78.00 - Pure hypercholesterolemia, unspecified Comprehensive [place]. Panel Fast 4 Months E78.00 - Pure hypercholesterolemia, unspecified Uric Acid 4 Months M10.9 - Gout, unspecified Hemoglobin A1c 4 Months E11.9 - Type 2 diabetes mellitus without complications TSH reflex Free T4 4 Months E78.00 - Pure hypercholesterolemia, unspecified Complete Blood Count Auto Diff 4 Months D64.9 - Anemia, unspecified UA CC w/rflx Micro + Cult 4 Months R30.0 - Dysuria Medications: New nystatin 1 appl topical TID 10 days 60 grams 3RF clotrimazole-betamethasone 1-0.05 % 1 appl topical BID 10 days 15 grams 0RF Refilled amlodipine 5 mg PO DAILY 90 days 90 tabs 1RF
[2024-08-26 14:43] VITALS: BP 134/62; PULSE 53; O2SAT 98; BMI 26.7
== END 2024-08-26 15:40 | disposition home or self-care (01) ==
PROVIDERS: PCP Internal Medicine; Visit Provider Internal Medicine
DX: I10 Essential (primary) hypertension (principal); E78.00 Pure hypercholesterolemia, unspecified; N18.31 Chronic kidney disease, stage 3a; R73.01 Impaired fasting glucose; M10.9 Gout, unspecified; E55.9 Vitamin D deficiency, unspecified; M17.0 Bilateral primary osteoarthritis of knee; M16.12 Unilateral primary osteoarthritis, left hip; M47.816 Spondylosis without myelopathy or radiculopathy, lumbar region; K21.9 Gastro-esophageal reflux disease without esophagitis; N52.9 Male erectile dysfunction, unspecified; N40.1 Benign prostatic hyperplasia with lower urinary tract symptoms; R39.15 Urgency of urination; B35.6 Tinea cruris; B35.3 Tinea pedis; E66.3 Overweight

== ENCOUNTER → 2024-08-26 14:37 | Outpatient (BNVA) | payer OTHER, SELFPAY | PROVIDERS: PCP Internal Medicine; Visit Provider Internal Medicine | DX: E78.00 Pure hypercholesterolemia, unspecified (principal); M10.9 Gout, unspecified; E11.9 Type 2 diabetes mellitus without complications; D64.9 Anemia, unspecified | CPT/HCPCS: 90471; 96127; 99212 ==

== ENCOUNTER 2024-10-01 07:56 | Outpatient (AMB) | payer OTHER, SELFPAY ==
--- NOTE | 2024-10-01 07:56 | A.OFFVIS_ITS ---
Intake Visit Reasons: follow up labs(set) Intake Note: Patient presents today for follow up on: erectile dysfunction, lab and ultrasound results Imaging Completed: 08/06/24 PSA: 0.99 Urology Medication: Tadalafil Antibiotic Allergy: none Blood Thinner: aspirin Investigations Director Required: No Accompanied by: Self / Same As Patient Allergies No Known Drug Allergies Allergy (Unknown, Verified 10/01/24 07:57) Unknown Medication List - Last Reconciled 10/01/24 by CINTHIA Carreno- allopurinol 200 mg (2 x 100 mg) PO DAILY 90 days amlodipine 5 mg PO DAILY 90 days aspirin 81 mg PO DAILY cholecalciferol (vitamin D3) 50 mcg PO DAILY 90 days clotrimazole-betamethasone 1-0.05 % 1 appl topical BID 10 days hydrochlorothiazide 25 mg PO DAILY 90 days nystatin 1 appl topical TID 10 days omeprazole 20 mg PO QAM 90 days tadalafil (Cialis) 5 mg PO DAILY 90 days tadalafil (Cialis) 20 mg PO .PRN PRN 90 days tizanidine 4 mg PO Q8H PRN 10 days HPI Comments Details: Feliz is a 78-year-old male patient of Dr. Riojas. He has a past medical history of ED, vitamin-D deficiency, chronic kidney disease stage 3, overweight, gout, GERD, hypercholesteremia, and hypertension. He is being followed up on today via telehealth. Of note, patient was seen approximately 3 months ago as a new patient for ongoing lower urinary tract symptoms as well as erectile dysfunction at which time he was started on low-dose Cialis daily with p.r.n. dosing prior to sexual activity, a retroperitoneal ultrasound was ordered for further assessment evaluation, and a PSA. These results were reviewed with the patient today. Bilateral kidneys with no renal calculi or hydronephrosis. Right kidney with 2 benign Bosniak class 1 renal cyst the largest measuring 3.9 cm which require no additional follow-up. Left kidney notes upper pole mass measuring 1.8 cm. This is not a simple cyst. Per radiology report there is a mural solid element and recommendations are being made for further imaging. The bladder is partially distended pre void bladder volume is approximately 110 mL. Postvoid bladder volume is a proximally 5 mL. The prostate measures 37 mL. PSA 08/19 1.0. He reports not having started p.r.n. dosing of Cialis however he does plan to. He reports noting no improvement in urinary urgency. He reports his main concern is urinary urgency. He otherwise denies incontinence, nocturia, hematuria, dysuria, foul smelling urine, changes to urinary stream, flank pain, fever, and or chills. He otherwise offers no other issues or concerns at this time. [facility] Medical History Impaired fasting glucose Benign prostatic hyperplasia (BPH) with urinary urgency Erectile dysfunction Vitamin D deficiency Chronic kidney disease (CKD), stage III (moderate) Overweight (BMI 25.0-29.9) Gout GERD (gastroesophageal reflux disease) Pure hypercholesterolemia Benign essential hypertension Surgical History History of colonoscopy History of cataract surgery Family History Mother No problems noted. Father No problems noted. Social History Housing: Apartment Alcohol intake: current Alcohol intake frequency: holidays/special occasions only Patient Tobacco Use Status: Former Tobacco user e-Cigarette/Vaping Use: Never Used Second Hand Smoke Exposure: Yes Current occupational status: retired Cognitive needs: No Hearing needs: No Vision needs: No Review of Systems Const Reports no additional complaints Eyes Reports no additional complaints ENT Reports no additional complaints Card Reports as per HPI Resp Reports no additional complaints GI Reports as per HPI Reports as per HPI Musc Reports no additional complaints Neuro Reports no additional complaints Psych Reports no additional complaints Endo Reports no additional complaints Alexander/Lymph Reports no additional complaints Aller/Immun Reports no additional complaints Physical Exam Const General: cooperative Orientation/consciousness: patient oriented x3 Resp Effort & Inspection: able to speak in complete sentences Neuro General: patient oriented x3 Psych Speech and movement: Clear speech present Attitude: cooperative Thought content: Normal thought content present Insight: Fair insight present (Psych) Judgement: Fair judgement present (Psych) Telehealth Telehealth Telehealth Platform: [employer] Location of provider rendering services: practice address Location of patient: address on file Patient Identification confirmed using: Name, : Yes Telehealth method: voice only Patient verbally consented to treatment: Yes Patient verbally consented to billing insurance company: Yes Patient informed of any privacy concerns related to visit: Yes Minutes spent on Phone/Video with Pt.: 20 Results Reviewed Results Reviewed: Date of Service: 08/06/24 EXAMINATION: US RETROPERITONEAL COMPLETE (RENAL) FINDINGS: RIGHT KIDNEY: 9.6 x 5.3 x 4.7 cm (SAG x AP x TRV). The kidney is normal in size, contour, and echogenicity. Renal cortical thickness is normal. No renal calculi or hydronephrosis. 2 benign Bosniak class I renal cysts are noted, the largest at the upper pole measuring 3.9 cm which require no additional imaging or follow-up. No solid renal masses are seen. LEFT KIDNEY: 9.8 x 5.8 x 5.1 cm (SAG x AP x TRV). The kidney is normal in size, contour, and echogenicity. Renal cortical thickness is normal. No renal calculi or hydronephrosis. At the upper pole of the left kidney, there is a mass measuring 1.7 x 1.6 x 1.8 cm. This is avascular. It is not a simple cyst. There is a mural solid element measuring about 1 cm in size. BLADDER: Partially distended. Bilateral ureteral jets are demonstrated. Prevoid bladder volume is 108 mL. Postvoid bladder volume is 4.0 mL. ADDITIONAL FINDINGS: There is mild BPH with a volume of 37 mL. IMPRESSION: 1. There is a 1.8 cm mass in the upper pole of the left kidney with a mural solid element. Further evaluation is recommended with precontrast and postcontrast renal MRI. 2. Benign Bosniak class I renal cysts need no additional imaging or follow-up. 3. Mild BPH. Assessment & Plan Assessment & Plan (1) Erectile dysfunction: Code(s): N52.9 - Male erectile dysfunction, unspecified Category: Medical Qualifiers: Erectile dysfunction type: unspecified Qualified Code(s): N52.9 - Male erectile dysfunction, unspecified (2) Urinary urgency: Code(s): R39.15 - Urgency of urination Category: Medical (3) Left renal mass: Code(s): N28.89 - Other specified disorders of kidney and ureter Category: Medical Plan Recent retroperitoneal ultrasound results reviewed with the patient today; as noted above. Recent PSA results reviewed with the patient today; as noted above We discussed obtaining MRI renal mass protocol given retroperitoneal ultrasound results. Continue 5 mg of Cialis daily. Start Myrbetriq 25 mg daily. We discussed bladder triggers/irritants. Discussed possible near future in office cystoscopy if symptoms continue and or worsen. Follow-up in 1-2 months with imaging and PVR; or sooner with any issues, concerns, and or questions. Orders: Orders MR kidney wo/w con Today N28.89 - Other specified disorders of kidney and ureter Medications: New mirabegron ER (Myrbetriq) 25 mg PO DAILY 30 tabs 1RF 30 days N32.81 - Overactive bladder, R35.1 - Nocturia, R39.15 - Urgency of urination Patient Instructions: The patient had an opportunity to ask questions regarding the treatment plan. All questions were answered. Physical exam, labs, and imaging were discussed and reviewed in detail. As well as risks, benefits, and discussion of treatment choices. No major barriers to understanding were identified. The patient expressed understanding and agreement with the above treatment plan. The patient was made aware they should contact our office by phone for worsening of their current condition, the appearance of new symptoms, or with any questions or concerns. Compliance is encouraged with any medications and follow up testing that is ordered. It is a privilege to be allowed the opportunity to participate in? your urological care.? Again, if you have any questions or concerns If you have any questions or concerns please do not hesitate to contact me. The office is [phone]. This note is constructed using voice recognition software. While every effort has been made to ensure accuracy meat apprentice errors may have been included. Yours sincerely, ABRAN Carreno Coding Level of Care Code Tele Est Pt Level 4 (11957) Diagnoses Erectile dysfunction, unspecified erectile dysfunction type N52.9 Erectile dysfunction type: unspecified Urinary urgency R39.15 Left renal mass N28.89
== END 2024-10-01 08:26 | disposition home or self-care (01) ==
LOC: HO.HUSH 07:56
PROVIDERS: PCP Internal Medicine; Visit Provider Nurse Practitioner Family
DX: N52.9 Male erectile dysfunction, unspecified (principal); R39.15 Urgency of urination; N28.89 Other specified disorders of kidney and ureter
CPT/HCPCS: 99214

== ENCOUNTER → 2024-10-01 07:56 | Outpatient (BNVA) | payer OTHER, SELFPAY | PROVIDERS: PCP Internal Medicine; Visit Provider Nurse Practitioner Family ==

== ENCOUNTER → 2024-12-29 13:16 | Outpatient (BNVA) | payer MEDICARE, SELFPAY | PROVIDERS: PCP Internal Medicine; Visit Provider Internal Medicine | DX: I12.9 Hypertensive chronic kidney disease with stage 1 through stage 4 chronic kidney disease, or unspecified chronic kidney disease (principal); N18.31 Chronic kidney disease, stage 3a; E78.00 Pure hypercholesterolemia, unspecified; R73.01 Impaired fasting glucose; M10.9 Gout, unspecified; E55.9 Vitamin D deficiency, unspecified; M17.0 Bilateral primary osteoarthritis of knee; K21.9 Gastro-esophageal reflux disease without esophagitis; N52.9 Male erectile dysfunction, unspecified; N40.1 Benign prostatic hyperplasia with lower urinary tract symptoms; R39.15 Urgency of urination; B35.6 Tinea cruris; E66.3 Overweight | CPT/HCPCS: 90471; 96127; 99212 ==

== ENCOUNTER 2025-04-07 10:36 | Outpatient (REF) | payer MEDICARE, SELFPAY ==
[2025-04-07 10:55] LABS: MANUAL DIFF FLAG NO
[2025-04-07 11:10] LABS: Basophils Percent Auto 0.6 % (0-2); Eosinophils Absolute Auto 0.1 X10*3/uL (0.0-0.4); Eosinophils Percent Auto 1.1 % (0-4); Hematocrit 42.2 % (42.0-52.0); Hemoglobin 14.4 g/dl (14.0-18.0); Imm Gran Abs Auto 0.01 X10*3/uL (0.00-0.03); Imm Gran Pct Auto 0.2 % (0.0-0.4); Lymphocytes Absolute Auto 2.4 X10*3/uL (1.2-4.9); Mean Corpuscular HGB Conc 34.1 g/dl (31.0-36.0); Mean Corpuscular Hemoglobin 30.3 pg (27.0-33.0); Mean Corpuscular Volume 88.7 fL (80.0-98.0); Mean Platelet Volume 9.5 fL (9.4-12.4); Monocytes Absolute Auto 0.5 X10*3/uL (0.1-1.2); Monocytes Percent Auto 7.9 % (2-11); Neutrophils Absolute Auto 3.4 x10*3/uL (2.0-8.3); Neutrophils Percent Auto 52.2 % (45-73); Platelet Count 290 X10*3/uL (160-400); Red Blood Count 4.76 X10*6/uL (4.60-5.80); Red Cell Distribution Width 14.3 % (11.0-16.0); White Blood Count 6.4 X10*3/uL (4.8-10.8)
[2025-04-07 11:21] LABS: Estimated Average Glucose 120 mg/dL; Hemoglobin A1C 147.8106 umol/L; Hemoglobin A1c % 5.8 % (<6.0); Total Hemoglobin (HGBA1C) 3748.7006 umol/L
[2025-04-07 11:33] LABS: Appearance Urine Clear; Color Urine Yellow; Glucose Urine UA Negative (Negative); Leukocyte Esterase Urine Negative (Negative); Nitrite Urine Negative (Negative); PH 7.5 (5.0-9.0); Specific Gravity - Urine 1.025 (1.005-1.025); UMIC TRIGGER UACC YES; Urine Blood Negative (Negative); Urine Ketones Negative (Negative); Urine Protein 30 (1+) mg/dL (Neg-Trace)
[2025-04-07 11:42] LABS: Bacteria Urine None Seen (None Seen); Hyaline Casts Urine 0-2 /LPF (0-2); RBC Urine 0-2 /HPF (0-2); Squamous Epithelial Cell Urine 0-2 /HPF (0-2); WBC Urine 0-5 /HPF (0-5)
[2025-04-07 12:18] LABS: Alanine Aminotransferase 22 U/L (0-40); Albumin Level 4.1 g/dL (3.5-5.0); Anion Gap 15 (12-20); Aspartate Amino Transferase 26 U/L (5-37); Bilirubin Total 0.4 mg/dL (0.0-1.0); Blood Urea Nitrogen 15 mg/dL (9-16); Calcium 9.4 mg/dL (8.4-10.2); Carbon Dioxide 24 mmol/L (22-29); Chloride 107 mmol/L (96-108); Cholesterol 271 mg/dL (<200); Estimated Glomerular Filt Rate 56; Glucose Fasting 106 mg/dL (60-99); HDL Cholesterol 69 mg/dL (>40); LDL Cholesterol Calculated 178 mg/dL (<100); Potassium 3.5 mmol/L (3.3-5.1); Sodium 142 mmol/L (135-145); TSH reflex Free T4 1.22 uIU/mL (0.32-4.0); Total Protein 7.5 g/dL (6.5-8.0); Triglycerides 121 mg/dL (<150); Uric Acid 6.9 mg/dL (3.4-7.0)
[2025-04-07 12:42] LABS: Alkaline Phosphatase 62 U/L (39-117)
== END 2025-04-07 10:37 | disposition home or self-care (01) ==
LOC: HO.LAB 10:36
PROVIDERS: PCP Internal Medicine; Visit Provider Internal Medicine
DX: E11.9 Type 2 diabetes mellitus without complications (principal); M10.9 Gout, unspecified; D64.9 Anemia, unspecified; E78.00 Pure hypercholesterolemia, unspecified
CPT/HCPCS: 36415; 80053; 80061; 81001; 83036; 84443; 84550; 85025

== ENCOUNTER 2025-09-08 15:34 | Outpatient (AMB) | payer MEDICARE, SELFPAY ==
[2025-09-08 15:36] VITALS: BP 120/76; PULSE 51; O2SAT 97; BMI 25.5
--- NOTE | 2025-09-08 15:36 | MHC.PC.OV ---
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: No Accompanied by: Self / Same As Patient Allergies No Known Drug Allergies Allergy (Unknown, Verified 09/08/25 15:54) Unknown Medication List - Last Reconciled 09/08/25 by Chuck Riojas MD allopurinol 200 mg (2 x 100 mg) PO DAILY 90 days amlodipine 5 mg PO DAILY 90 days aspirin 81 mg PO DAILY cholecalciferol (vitamin D3) 50 mcg PO DAILY 90 days clotrimazole-betamethasone 1-0.05 % 1 appl topical BID 10 days hydrochlorothiazide 25 mg PO DAILY 90 days nystatin 1 appl topical TID 10 days omeprazole 20 mg PO QAM 90 days solifenacin (Vesicare) 5 mg PO DAILY 30 days tadalafil (Cialis) 5 mg PO DAILY 90 days tadalafil (Cialis) 20 mg PO .PRN PRN 90 days tizanidine 4 mg PO Q8H PRN 10 days Tobacco use date assessed: 09/08/25 Fall risk assessment: No Falls in past year Last assessed Fall Risk: 09/08/25 Dental Screening Dental Screen Date: 09/08/25 Did you have a dental visit in the last 12 months?: No Did you have a dental problem in the last 6 months where you did not have access to dental care?: No Was dental information given to patient?: No HPI Follow up appointment HPI Details Patient comes in today for his follow up visit States that he feels okay He denies any headaches or dizziness Denies any chest pains, no SOB No nausea/vomiting, no abdominal pain No change in bowel habits noted Adds that he has some raised nodules on his palms lately and he's had a couple of his fingers (middle finger on both hands) stay bent for hours during the day and he has a hard time straigthening them out often He had his follow up labs done back in March 2025 - to discuss his results [facility] Medical History Impaired fasting glucose Benign prostatic hyperplasia (BPH) with urinary urgency Erectile dysfunction Vitamin D deficiency Chronic kidney disease (CKD), stage III (moderate) Overweight (BMI 25.0-29.9) Gout GERD (gastroesophageal reflux disease) Pure hypercholesterolemia Benign essential hypertension Surgical History History of colonoscopy History of cataract surgery Family History Mother No problems noted. Father No problems noted. Social History Housing: Apartment Alcohol intake: current Alcohol intake frequency: holidays/special occasions only Patient Tobacco Use Status: Former Tobacco user e-Cigarette/Vaping Use: Never Used Second Hand Smoke Exposure: Yes service: No Current occupational status: retired Cognitive needs: No Hearing needs: No Vision needs: No Questionnaire PHQ-9 Over the last 2 weeks, how often have you been bothered by any of the following problems? 1. Little interest or pleasure in doing things: not at all 2. Feeling down, depressed, or hopeless: not at all 3. Trouble falling or staying asleep, or sleeping too much: not at all 4. Feeling tired or having little energy: not at all 5. Poor appetite or overeating: not at all 6. Feeling bad about yourself - or that you are a failure or have let yourself or your family down: not at all 7. Trouble concentrating on things, such as reading the newspaper or watching television: not at all 8. Moving or speaking so slowly that other people could have noticed. Or the opposite - being so fidgety or restless that you have been moving around a lot more than usual: not at all 9. Thoughts that you would be better off or of hurting yourself in some way: not at all Total score: 0 Depression Screening Interpretation: Negative Depression Screening Done: Yes 39977 - PHQ-9 Billing: Yes Source: Developed by Drs. Jeff Mena, Roselia Miller, Lalo Sexton and colleagues, with an educational alia from [employer]. Thrive Questionnaire Date Thrive assessed: 09/08/25 I am a: Patient What is your living situation today?: I have a steady place to live Within the past 12 months, did the food you bought not last and you didn't have the money to get more?: Often true Within the past 12 months, did you worry whether your food would run out before you got money to buy more?: Often true Do you have trouble paying for medicines?: Yes Do you have trouble getting transportation to medical appointments?: No Do you have trouble paying your heating and electricity bill?: No Do you have trouble taking care of your child, family member or friend?: No Do you have trouble with day-to-day activities such as bathing, preparing meals, shopping, managing finances, etc.?: No Are you currently unemployed and looking for a job?: No Are you interested in more education?: No Please select the resources that you would like help with: None Currently or been in a relationship where the following occur: No concerns reported THRIVE Score: 2 AUDIT C Alcohol Use Questionnaire (AUDIT-C) 1. How often do you have a drink containing alcohol?: 2-4 times a month 2. How many drinks containing alcohol do you have on a typical day when you are drinking?: 1 or 2 (1 bottle of beer) 3. How often do you have six or more drinks on one occasion?: Less than monthly Total Score: 3 Score Reviewed/Action Taken: Yes SID-7 AMB Questionnaire SID-7 Date SID - 7 assessed: 12/29/24 Source: Developed by Drs. Jeff Mena, Roselia Miller, Lalo Sexton and colleagues, with an educational alia from [employer]. Review of Systems Const Denies chills, Denies fatigue, Denies fever(s) and Denies headache(s) ENT Denies dysphagia, Denies dizziness, Denies otalgia, Denies headache(s), Denies neck pain, Denies odynophagia and Denies sore throat Card Denies chest pain, Denies irregular heart rhythm, Denies palpitations and Denies dyspnea Resp Denies chest congestion, Denies cough and Denies dyspnea GI Denies abdominal pain, Denies constipation, Denies dysphagia, Denies heartburn, Denies diarrhea, Denies nausea, Denies odynophagia and Denies vomiting Denies difficulty urinating, Reports erectile dysfunction, Denies dysuria, Denies nocturia, Denies urinary frequency and Reports urinary urgency (at times) Musc Details: (+) raised nodular lesion on both palms; is often unable to completely straigthen out the middle finger of both hands Reports back pain (over the lower back - chronic), Reports arthralgias (chronic pain over both knees) and Denies neck pain Neuro Denies dizziness, Denies headache(s) and Denies paresthesias Endo Denies fatigue and Denies palpitations Physical exam (Primary Care) Vital Signs: Last Vital Signs Pulse 51 09/08/25 15:36 BP 120/76 09/08/25 15:36 Pulse Ox 97 09/08/25 15:36 Oxygen Delivery Method Room Air 09/08/25 15:36 BMI result Body Mass Index 25.5 Tobacco/Smoking Status: Tobacco use Status Tobacco use date assessed 09/08/25 09/08/25 15:46 Patient Tobacco Use Status Former Tobacco user 09/08/25 15:46 e-Cigarette/Vaping Use Never Used 09/08/25 15:46 PHQ-9: PHQ-9 Score PHQ-9: Total score 0 09/08/25 15:46 Depression Screening Interpretation: Negative Thrive Assessment: Date of Thrive Assessment Date Thrive assessed 09/08/25 09/08/25 15:46 Currently or been in a relationship where the following occur: No concerns reported Const General: no acute distress and alert HENMT Ears: TM's normal bilaterally and EAC's normal Throat: Yes posterior oropharynx normal and Yes tonsils normal (no TP congestion) Neck Neck: Yes supple and No lymphadenopathy Thyroid: Thyroid normal Resp Auscultation: clear to auscultation bilaterally, no rales and no wheezes Cardio Rate: regular rate Rhythm: regular rhythm Heart sounds: no murmurs GI Palpation (GI): Soft to palpation and nontender Auscultation: normal bowel sounds General: Yes no CVA tenderness Back/Spine/Pelvis Back: no CVA tenderness Thoracic/Lumbar Spine: lumbar spinal tenderness Skin Rashes: no rashes Extrem Other: (+) small nodular lesion/thickening on the palms bilaterally, with the middle fingers on both hands partially flexed General: Yes no clubbing, cyanosis or edema Right lower extremity: knee Details: tenderness; no swelling Left lower extremity: knee Details: tenderness; no swelling Results Reviewed Results Reviewed: Laboratory Tests 04/07/25 04/07/25 10:42 10:54 WBC 6.4 Hgb 14.4 Hct 42.2 Plt Count 290 Sodium 142 Potassium 3.5 Creatinine 1.24 Estimated GFR 56 Fasting Glucose 106 H Hemoglobin A1c % 5.8 Uric Acid 6.9 Calcium 9.4 AST 26 ALT 22 Triglycerides 121 Cholesterol 271 H LDL Cholesterol, Calc 178 H HDL Cholesterol 69 TSH 1.22 Ur Specific [place] 1.025 Urine Protein 30 (1+) H Urine Glucose (UA) Negative Urine Blood Negative Urine Nitrite Negative Ur Leukocyte Esterase Negative Coding Level of Care Code Est Pt Level 4 (01982) Complex EM visit Add On G2211 Diagnoses Benign essential hypertension I10 Stage 3a chronic kidney disease N18.31 Chronic kidney disease stage 3 subtype: stage 3a (GFR 45-59) Pure hypercholesterolemia E78.00 Impaired fasting glucose R73.01 Gout, unspecified cause, unspecified chronicity, unspecified site M10.9 Gout site: unspecified site Gout etiology: unspecified cause Chronicity: unspecified Vitamin D deficiency E55.9 Trigger middle finger, unspecified laterality M65.339 Trigger finger location: middle finger Laterality: unspecified laterality Dupuytren's contracture M72.0 Bilateral primary osteoarthritis of knee M17.0 Primary osteoarthritis of left hip 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 Spinal osteoarthritis complication: without myelopathy or radiculopathy Gastroesophageal reflux disease without esophagitis K21.9 Esophagitis presence: without esophagitis Erectile dysfunction, unspecified erectile dysfunction type N52.9 Erectile dysfunction type: unspecified Benign prostatic hyperplasia (BPH) with urinary urgency N40.1; R39.15 Overweight (BMI 25.0-29.9) E66.3 Additional Codes PHQ-9 - 51859 - PHQ-9 Billing: Yes ([id number]) Assessment & Plan Assessment & Plan (1) Benign essential hypertension: Code(s): I10 - Essential (primary) hypertension Category: Medical Plan: Reinforced low sodium diet - goal is systolic BP of at least 130 to 140 mm or less, especially in light of his stage 3 CKD Continue HCTZ 25 mg Q AM and Amlodipine 5 mg QD althogh patient admits that he has not been taking these regularly as he is still not convinced that these blood pressure medications are the best choices for him as they are supposedly designed mostly for the population He was on Losartan 25 mg QD before but he requested to have this changed as this is supposedly NOT the best antihypertensives for black people from what he has read States that he will continue to do his own research and will call us back once he has determined for himself what would be the best medication for him to be on Have cautioned him that as long as his blood pressure stays high or uncontrolled, it will continue to have a detrimental impact on his renal function so he should not continue to procrastinate on this (2) Chronic kidney disease (CKD), stage III (moderate): Code(s): N18.30 - Chronic kidney disease, stage 3 unspecified Category: Medical Qualifiers: Chronic kidney disease stage 3 subtype: stage 3a (GFR 45-59) Qualified Code(s): N18.31 - Chronic kidney disease, stage 3a Plan: Have cautioned patient again that he currently is in CKD stage 3a based on his lab results from a few months ago and that uncontrolled blood pressure will be the biggest contributor to the continuing decline in his renal function Will continue to monitor his renal function closely/regularly (3) Pure hypercholesterolemia: Code(s): E78.00 - Pure hypercholesterolemia, unspecified Category: Medical Plan: Results of his labs done back in March 2025 reviewed and discussed with patient He is advised that his cholesterol levels were elevated on his recent labs - total cholesterol was at 271 mg/dl and LDL cholesterol was at 178 mg/dl - and that these are even higher than they were last year Reinforced low cholesterol diet He was on Atorvastatin 40 mg QD in the past but he stopped taking this on his own last year Will recheck his labs and fasting lipids again in 6 months for follow up (4) Impaired fasting glucose: Code(s): R73.01 - Impaired fasting glucose Category: Medical Plan: Have advised patient that his FBS was again slightly elevated at 106 mg/dl on his most recent labs; HgbA1c was at 5.8%, which is the cut off between normal and borderline diabetes Reinforced low calorie/low carb diet Will recheck his FBS and check his HgbA1c in 6 months for follow up (5) Gout: Code(s): M10.9 - Gout, unspecified Category: Medical Qualifiers: Gout site: unspecified site Gout etiology: unspecified cause Chronicity: unspecified Qualified Code(s): M10.9 - Gout, unspecified Plan: Her serum uric acid level was normal at 6.9 mg/dl on his recent labs; it was elevated at 9.6 mg/dl when it was checked last year and was normal back in September 2022 Reinforced low purine diet Continue Allopurinol 100 mg 2 tablets QD Will recheck his serum uric acid level in 6 months for follow up (6) Vitamin D deficiency: Code(s): E55.9 - Vitamin D deficiency, unspecified Category: Medical Plan: Continue Vitamin D3 2000 units QD (7) Trigger finger: Code(s): M65.30 - Trigger finger, unspecified finger Category: Medical Qualifiers: Trigger finger location: middle finger Laterality: unspecified laterality Qualified Code(s): M65.339 - Trigger finger, unspecified middle finger Plan: Involving mostly the middle fingers on both hands Will refer him to orthopedics for consideration for trigger finger release surgery, if appropriate (8) Dupuytren's contracture: Code(s): M72.0 - Palmar fascial fibromatosis [Dupuytren] Category: Medical Plan: Will refer him to orthopedics for further management (9) Bilateral primary osteoarthritis of knee: Code(s): M17.0 - Bilateral primary osteoarthritis of knee Category: Medical Plan: X-rays of the left knee done back in January 2023 revealed (+) moderately severe OA changes of the medial joint space compartment of the left knee He has been going [place] [facility] for his chronic knee pain and issues and his pain currently appears to be well-controlled (10) Primary osteoarthritis of left hip: Code(s): M16.12 - Unilateral primary osteoarthritis, left hip Category: Medical Plan: Left hip x-rays done in January 2023 revealed (+) very mild OA changes in the left hip Follow up with orthopedics as scheduled (11) Osteoarthritis of lumbar spine: Code(s): M47.816 - Spondylosis without myelopathy or radiculopathy, lumbar region Category: Medical Qualifiers: Spinal osteoarthritis complication: without myelopathy or radiculopathy Qualified Code(s): M47.816 - Spondylosis without myelopathy or radiculopathy, lumbar region Plan: Reinforced activity and weight-lifting restrictions to avoid aggravating his low back pain, which currently appears adequately controlled Follow up with pain management as scheduled (12) GERD (gastroesophageal reflux disease): Code(s): K21.9 - Gastro-esophageal reflux disease without esophagitis Category: Medical Qualifiers: Esophagitis presence: without esophagitis Qualified Code(s): K21.9 - Gastro-esophageal reflux disease without esophagitis Plan: Dietary restrictions reinforced Continue Omeprazole 20 mg QD (13) Erectile dysfunction: Code(s): N52.9 - Male erectile dysfunction, unspecified Category: Medical Qualifiers: Erectile dysfunction type: unspecified Qualified Code(s): N52.9 - Male erectile dysfunction, unspecified Plan: Continue Tadalafil 20 mg QD PRN Patient is again cautioned/reminded not to take this IF his blood pressure is uncontrolled or high as taking this while his blood pressure is high can further exacerbate his high blood pressure to dangerous levels (14) Benign prostatic hyperplasia (BPH) with urinary urgency: Code(s): N40.1 - Benign prostatic hyperplasia with lower urinary tract symptoms; R39.15 - Urgency of urination Category: Medical Plan: His serum PSA level was low at 0.99 when last checked a few months ago Continue Tadalafil 5 mg QD Follow up with urology as scheduled (15) Overweight (BMI 25.0-29.9): Code(s): E66.3 - Overweight Category: Medical Plan: Reinforced diet/exercise as tolerated/lose weight Plan Follow up in 6 months Orders: Orders Hemoglobin A1c 6 Months R73.01 - Impaired fasting glucose Uric Acid 6 Months M10.9 - Gout, unspecified Complete Blood Count Auto Diff 6 Months D64.9 - Anemia, unspecified Comprehensive [place]. Panel Fast 6 Months E78.00 - Pure hypercholesterolemia, unspecified Lipid Panel 6 Months E78.00 - Pure hypercholesterolemia, unspecified Microalbumin, Random (w Creat) 6 Months N18.31 - Chronic kidney disease, stage 3a UA CC w/rflx Micro + Cult 6 Months R30.0 - Dysuria TSH reflex Free T4 6 Months E78.00 - Pure hypercholesterolemia, unspecified Referrals Orthopedics Referral M65.30 - Trigger finger, unspecified finger, M72.0 - Palmar fascial fibromatosis [Dupuytren]
--- OUTSIDE RECORDS SUMMARY | 2025-09-08 18:17 | XMS_ITS | Clinical Summary ---
Author Organization [facility] Address [address] [address] Phone Care Team Providers Care Manufacturing Test Engineer Name Role Phone Haile Andersonia Trevon ANTONIO Primary Care Provider [phone] Allergies No known active allergies Medications allopurinol (ZYLOPRIM) 300 MG tablet Take 300 mg by mouth daily. Active hydroCHLOROthia zide (HYDRODIURIL) 25 MG tablet Take 25 mg by mouth daily. Active omeprazole (PRILOSEC) 20 mg TbEC Take 20 mg by mouth daily. Active aspirin 81 mg chewable tablet Take 1 tablet (81 mg total) by mouth daily. 30 tablet 02/03/2020 Active meclizine (ANTIVERT) 25 mg tablet Take 1 tablet (25 mg total) by mouth 3 (three) times a day as needed for dizziness. 60 tablet 02/02/2020 Active atorvastatin (LIPITOR) 80 MG tablet Take 0.5 tablets (40 mg total) by mouth nightly at bedtime. 30 tablet 02/02/2020 Active Active Problems Problem Noted Date Diagnosed Date Vertigo 01/31/2020 Assessment & Plan (02/01/2020 1:25 PM EDT): Positional Vertigo. No nystagmus on - would check MRI to r/u small cerebellar stroke - cont meclizine - plan for therapy eval Hypertensive disorder Assessment & Plan (02/01/2020 1:23 PM EDT): Holding BP while we r/o stroke. Bradycardia Assessment & Plan (02/01/2020 1:23 PM EDT): TSH and echo are pending. Cardiology does not feel his sxs are related to his mild bradycardia. No HR>40s overnight. 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 Not on julianna e 03/23/2023 Are you concerned about learning? Not on file 03/23/2023 No 03/23/2023 No 03/23/2023 Digital Access Answer Date Recorded No 04/21/2023 No 04/21/2023 No 04/21/2023 Reliable internet access at home? Not on file 04/21/2023 Device with a working camera? Not on file Sex and Gender Information Value Date Recorded Sex Assigned at Male 10/29/2018 10:46 AM EST Legal Sex Male 10:07 PM EDT Gender Identity Male 10/29/2018 10:46 AM EST Sexual Orientation Straight 10/29/2018 10 :46 AM EST Last Filed Vital Signs Vital Sign Reading Time Taken Comments Blood Pressure 206/83 08/15/2022 4:36 PM EDT Pulse 46 08/15/2022 4:36 PM EDT Temperature 35.8 C (96.4 F) 08/15/2022 12:47 PM EDT Respiratory Rate 18 08/15/2022 4:36 PM EDT Oxygen Saturation 99% 08/15/2022 4:36 PM EDT Inhaled Oxygen Concentration - - Weight 78 kg (172 lb) 08/15/2022 12:47 PM EDT Height 162.6 cm (5' 4 ) 08/15/2022 12:47 PM EDT Body Mass Index 29.52 08/15/2022 12:47 PM EDT Plan of Treatment Health Maintenance Due Date Last Done Comments BLOOD PRESSURE 1946 DEPRESSION SCREENING 1958 HEPATITIS C SCREENING 1964 ZOSTER VACCINES (2 of 3) 07/28/2016 06/02/2016 PNEUMOCOCCAL VACCINES (50+ years) (2 of 2 - PPSV23) 06/02/2017 06/02/2016 CREATININE LEVEL 02/01/2021 02/02/2020, 01/31/2020 POTASSIUM LEVEL 02/01/2021 02/02/2020, 01/31/2020 RSV VACCINE (1 - 1-dose 75+ series) 2021 LIPID PANEL 02/01/2025 02/02/2020 INFLUENZA VACCINE (#1) 2025 COVID-19 VACCINE (3 - 2024-2 6 season) 2025 03/19/2021, 02/26/2021 Adult Td,Tdap Booster 06/02/2026 06/02/2016 SMOKING STATUS SCREENING (On ce After 26 Yrs) Completed 01/31/2020 HEPATITIS A VACCINES Aged Out No long er eligible based on patient's age to complete this topic HIB VACCINES Aged Out No longer eligi ble based on patient's age to complete this topic MENINGOCOCCAL VACCINES (ACWY) Aged Out No longer eligible based on patient's age to complete this topic MENINGOCOCCAL VACCINES (B) Aged Out N o longer eligible based on patient's age to complete this topic Medical Devices Not on file Procedures Procedure Name Priority Date/Time Associated Diagnosis Comments LIPID PANEL STAT 02/02/2020 10:23 AM EDT BASIC METABOLIC PANEL STAT 02/02/2020 10:23 AM EDT from Last 3 Months or Most Recently Relevant to Health Maintenance Results * (ABNORMAL) Lipid panel (02/02/2020 10:23 AM EDT) HDL 52 mg/dL [facility] Comment: Interpretation <40 mg/dL: Low HDL cholesterol (major risk factor for CHD) Greater than or equal to 60 mg/dL: High HDL cholesterol ( negative risk factor for CHD) HDL - cholesterol is affected by a number of factors, e.g. smoking, excerise, hormones, sex and age. CHOLESTEROL 237 0 - 240 mg/dL [facility] TRIGLYCERIDES 140 30 - 160 mg/dL [facility] LDL 157(H) 50 - 129 mg/dL [facility] Comment: LDL levels in terms of risk for coronary heart disease: <100 mg/dL: Optimal 100-129 mg/dL: Near or above optimal 130-159 mg/dL: Borderline high 160-189 mg/dL: High >190 mg/dL: Very High CARDIAC RISK RATIO 4.6 3.4 - 5.0 [facility] Blood 02/02/2020 10:2 3 AM EDT 02/02/2020 10:39 AM EDT Jeanne Tiwari DO LAB BLOOD ORDERABLES Final Res ult Performing Organization Address [facility]/ZIP Co de Phone Number [address] [address] * (ABNORMAL) Basic metabolic panel (02/02/2020 10:23 AM EDT) SODIUM 139 133 - 146 mmol/L [facility] CHLORIDE 103 96 - 108 mmol/L [facility] POTASSIUM 3.4 3.3 - 5.1 mmol/L [facility] CO2 24 21 - 35 mmol/L [facility] BUN 17 6 - 19 mg/dL [facility] CREATININE 1.40 0.5 - 1.5 mg/dL [facility] GLUCOSE 88 70 - 99 mg/dL [facility] CALCIUM 9.8 8.4 - 10.3 mg/dL [facility] EGFR 49(L) >59 mL/min/1.7 3m2 [facility] Comment:If patient is black, multiply result by 1.159. Estimated glomerular filtration rate calculated using the CKD-EPI equation. ANION GAP 15 10 - 20 mmol/L [facility] Blood 02/02/2020 10:2 3 AM EDT 02/02/2020 10:39 AM EDT Jeanne Tiwari DO LAB BLOOD ORDERABLES Final Res ult Performing Organization Address City/[facility]/ZIP Co de Phone Number [address] [address] from Last 3 Months or Most Recently Relevant to Health Maintenance Insurance MEDICARE PART A & B MEDICARE PART A & B MEDICARE PART A & B MEDICARE PART A & B MEDICARE PART A & B MEDICARE PART A & B MEDICARE PART A & B MEDICARE PART A & B MEDICARE PART A & B [employer] Advance Directives For more information, please contact: [phone] (9AM - 5PM [facility], Sunday-Sunday) * DNR OK to Intubate (Latest Code Status on File) Date Activated Date Inactivated Comments 01/31/2020 7:51 PM 02/02/2020 5:10 PM Question Answer Comments Code Status Confirmed With: Patient Healthcare Agents on File Name Relationship Healthcare Agent [facility] Communication Bianca Alonso Sister .Primary Health Care Agent (Proxy form on file) Care Teams Manufacturing Test Engineer Relationship Specialty Start Date End Date Oma Anderson NP [address] [place] [id number] PCP - General Nurse Practitioner 10/29/18 Additional Source Comments The information contained in this document represents components of the legal health record. It is not the complete legal health record.[facility]
--- OUTSIDE RECORDS SUMMARY | 2025-09-08 18:17 | XMS_ITS | Encounter Summary ---
Author Organization [facility] Address [address] [place] [id number] Phone Care Team Providers Care Rear Admiral Name Role Phone Oma Anderson DAILY SALES AUDIT CLERK Primary Care Provider [phone] Encounter Details Date Type Department Care Team (Late st Contact Info) Description 01/31/2020 Procedure Pass [facility], [facility] - [address] [address] Social History Tobacco Use Types Packs/Day Years Used Date Smoking Tobacco: Never Smokeless Tobacco: Never Alcohol Use Standard Drinks/Week Comments Yes 0 (1 standard drink = 0.6 oz pur e alcohol) Sex and Gender Information Value Date Recorded Sex Assigned at Male 10/29/2018 10:46 AM EST Legal Sex Male 10:07 PM EDT Gender Identity Male 10/29/2018 10:46 AM EST Sexual Orientation Straight 10/29/2018 10 :46 AM EST documented as of this encounter Plan of Treatment Not on file documented as of this encounter Visit Diagnoses Not on filedocumented in this encounter Care Teams Rear Admiral Relationship Specialty Start Date End Date Oma Anderson NP [address] [place] [id number] PCP - General Nurse Practitioner 10/29/18 documented as of this encounter Additional Source Comments The information contained in this document represents components of the legal health record. It is not the complete legal health record.[facility]
== END 2025-09-08 16:13 | disposition home or self-care (01) ==
LOC: HO.HMCH 15:35
PROVIDERS: PCP Internal Medicine; Visit Provider Internal Medicine
DX: I10 Essential (primary) hypertension (principal); N18.31 Chronic kidney disease, stage 3a; E78.00 Pure hypercholesterolemia, unspecified; R73.01 Impaired fasting glucose; M10.9 Gout, unspecified; E55.9 Vitamin D deficiency, unspecified; M65.339 Trigger finger, unspecified middle finger; M72.0 Palmar fascial fibromatosis [Dupuytren]; M17.0 Bilateral primary osteoarthritis of knee; M16.12 Unilateral primary osteoarthritis, left hip; M47.816 Spondylosis without myelopathy or radiculopathy, lumbar region; K21.9 Gastro-esophageal reflux disease without esophagitis; N52.9 Male erectile dysfunction, unspecified; N40.1 Benign prostatic hyperplasia with lower urinary tract symptoms; R39.15 Urgency of urination; E66.3 Overweight

== ENCOUNTER → 2025-09-08 15:34 | Outpatient (BNVA) | payer MEDICARE, SELFPAY | PROVIDERS: PCP Internal Medicine; Visit Provider Internal Medicine | DX: N40.1 Benign prostatic hyperplasia with lower urinary tract symptoms (principal); I12.9 Hypertensive chronic kidney disease with stage 1 through stage 4 chronic kidney disease, or unspecified chronic kidney disease; N18.31 Chronic kidney disease, stage 3a; E78.00 Pure hypercholesterolemia, unspecified; R73.01 Impaired fasting glucose; M10.9 Gout, unspecified; E55.9 Vitamin D deficiency, unspecified; M65.339 Trigger finger, unspecified middle finger; M72.0 Palmar fascial fibromatosis [Dupuytren]; M17.0 Bilateral primary osteoarthritis of knee; M16.12 Unilateral primary osteoarthritis, left hip; M47.816 Spondylosis without myelopathy or radiculopathy, lumbar region; K21.9 Gastro-esophageal reflux disease without esophagitis; N52.9 Male erectile dysfunction, unspecified; R39.15 Urgency of urination; E66.3 Overweight; Z68.25 Body mass index [BMI] 25.0-25.9, adult | CPT/HCPCS: 96127; 99212 ==